=== PATIENT | male | born 1980 | race Caucasian/White ===

== ENCOUNTER 2017-03-19 20:50 | Emergency (ER) | payer OTHER ==
[~2017-03-19 20:50] MED LIST: ATIVAN1 MG PO; FIORICET1 TAB PO; GABAPENTIN300 M2; GABAPENTIN800 M1 PO; HUMALOG100 U/ML SC; LANTUS SOLOS100 U/M1; LANTUS SOLOS100 U/M1 SC; METOPROLOL TART25 M1 PO; PERCOCET1 TA2 PO; PRILOSEC20 MG PO; REM15 PO; XANAX0.5 MG PO; XANAX2 MG PO
[2017-03-20 00:02] VITALS: BP 112/73
== END 2017-03-20 00:02 | disposition home or self-care (01) ==
LOC: ED 20:50
DX: S20.212A Contusion of left front wall of thorax, initial encounter (principal); I10 Essential (primary) hypertension; E11.9 Type 2 diabetes mellitus without complications; E78.00 Pure hypercholesterolemia, unspecified; Z79.4 Long term (current) use of insulin; Z79.891 Long term (current) use of opiate analgesic; Z79.899 Other long term (current) drug therapy; W17.89XA Other fall from one level to another, initial encounter; Z88.1 Allergy status to other antibiotic agents; Y93.39 Activity, other involving climbing, rappelling and jumping off; Y92.488 Other paved roadways as the place of occurrence of the external cause; Y99.8 Other external cause status
CPT/HCPCS: 82962; J1885

== ENCOUNTER 2017-06-23 10:55 | Emergency (ER) | payer OTHER ==
[2017-06-23 12:08] VITALS: BP 121/91
== END 2017-06-23 12:25 | disposition home or self-care (01) ==
LOC: ED 10:55
DX: L02.411 Cutaneous abscess of right axilla (principal); E10.9 Type 1 diabetes mellitus without complications
CPT/HCPCS: J2001

== ENCOUNTER 2017-09-27 19:08 | Inpatient (IN) | payer OTHER ==
[~2017-09-27] VITALS: Ht 185.4 cm; Wt 57.2 kg
[2017-09-27 20:35] LABS: microscopic required? YES; urine erythrocyte TRACE (NEGATIVE)
[2017-09-27 20:38] LABS: BASOPHIL % 0.4 % (0-2); PLATELET COUNT 282 x10^3mcL (130-400)
[2017-09-27 20:49] LABS: ALBUMIN 3.7 g/dL (3.4-5.0); BILIRUBIN TOTAL 1.21 mg/dL (0.20-1.00); CALCIUM 8.5 mg/dL (8.5-10.1); CREATININE SERUM 1.4 mg/dL (0.7-1.3); POTASSIUM SERUM 4.3 mmol/L (3.5-5.1); TOTAL PROTEIN, SERUM 7.3 g/dL (6.4-8.2)
[2017-09-27 20:56] LABS: CHOLESTEROL/HDL RATIO 3.5
[2017-09-27 20:58] LABS: CARBON DIOXIDE 9.3 mmol/L (21-32)
[2017-09-27 21:00] LABS: FREE T4 0.79 ng/dL (0.76-1.46)
[2017-09-27 21:01] LABS: FREE THYROXINE INDEX 1.6 ug/dL (1.4-4.5); T4(THYROXINE) 4.5 ug/dL (4.7-13.3)
[2017-09-27 21:02] LABS: T3 TOTAL 0.35 ng/mL
[2017-09-27 21:34] LABS: AMPHETAMINE QUAL UR NONE DETECTED (NEG <=1000)
[2017-09-27 23:36] VITALS: BP 123/89
[2017-09-28 00:25] LABS: CHLORIDE SERUM 105 mmol/L (98-107); CREATININE SERUM 1.2 mg/dL (0.7-1.3); GFR1 > 60 mL/min; GLUCOSE SERUM 289 mg/dL (74-106); MAGNESIUM 2.2 mg/dL (1.8-2.4); POTASSIUM SERUM 3.6 mmol/L (3.5-5.1); SODIUM SERUM 140 mmol/L (136-145)
[2017-09-28 00:30] LABS: CARBON DIOXIDE 9.8 mmol/L (21-32)
[2017-09-28 04:00] VITALS: BP 118/82
[2017-09-28 05:37] LABS: BASOPHIL % 0.5 % (0-2); PLATELET COUNT 270 x10^3mcL (130-400); RED CELL DISTRIBUTION WIDTH 12.8 % (11.5-14.5)
[2017-09-28 05:43] LABS: CALCIUM 7.7 mg/dL (8.5-10.1); CARBON DIOXIDE 14.7 mmol/L (21-32); CHLORIDE SERUM 109 mmol/L (98-107); CREATININE SERUM 1.1 mg/dL (0.7-1.3); GFR1 > 60 mL/min; GLUCOSE SERUM 148 mg/dL (74-106); PHOSPHOROUS 2.9 mg/dL (2.5-4.9); POTASSIUM SERUM 3.7 mmol/L (3.5-5.1); SODIUM SERUM 140 mmol/L (136-145)
[2017-09-28 08:14] VITALS: Ht 185.4 cm; Wt 57.2 kg
[2017-09-28 08:23] VITALS: BP 96/65
[2017-09-28 09:00] LABS: CALCIUM 7.5 mg/dL (8.5-10.1); CARBON DIOXIDE 22.2 mmol/L (21-32); CHLORIDE SERUM 104 mmol/L (98-107); GFR1 > 60 mL/min; GLUCOSE SERUM 308 mg/dL (74-106); MAGNESIUM 1.7 mg/dL (1.8-2.4); PHOSPHOROUS 1.7 mg/dL (2.5-4.9); POTASSIUM SERUM 3.4 mmol/L (3.5-5.1); SODIUM SERUM 134 mmol/L (136-145)
[2017-09-28 11:41] VITALS: BP 81/59
[2017-09-28 13:27] LABS: CALCIUM 7.8 mg/dL (8.5-10.1); CARBON DIOXIDE 23.5 mmol/L (21-32); CHLORIDE SERUM 105 mmol/L (98-107); CREATININE SERUM 0.8 mg/dL (0.7-1.3); GFR1 > 60 mL/min; GLUCOSE SERUM 220 mg/dL (74-106); MAGNESIUM 1.7 mg/dL (1.8-2.4); PHOSPHOROUS 1.9 mg/dL (2.5-4.9); SODIUM SERUM 138 mmol/L (136-145)
[2017-09-28 13:29] LABS: POTASSIUM SERUM 2.9 mmol/L (3.5-5.1)
[2017-09-28 15:57] VITALS: BP 88/45
[2017-09-28 17:48] VITALS: BP 111/83
[2017-09-28 20:13] LABS: CALCIUM 7.9 mg/dL (8.5-10.1); CARBON DIOXIDE 23.1 mmol/L (21-32); CHLORIDE SERUM 103 mmol/L (98-107); CREATININE SERUM 1.2 mg/dL (0.7-1.3); GFR1 > 60 mL/min; GLUCOSE SERUM 317 mg/dL (74-106); SODIUM SERUM 136 mmol/L (136-145)
[2017-09-28 21:02] VITALS: BP 104/63
[2017-09-29 05:51] VITALS: BP 102/64
[2017-09-29 06:17] LABS: BASOPHIL % 0.4 % (0-2); PLATELET COUNT 197 x10^3mcL (130-400); RED CELL DISTRIBUTION WIDTH 12.5 % (11.5-14.5)
[2017-09-29 07:00] LABS: CALCIUM 8.3 mg/dL (8.5-10.1); CARBON DIOXIDE 25.3 mmol/L (21-32); CHLORIDE SERUM 102 mmol/L (98-107); CREATININE SERUM 0.9 mg/dL (0.7-1.3); GFR1 > 60 mL/min; MAGNESIUM 1.9 mg/dL (1.8-2.4); POTASSIUM SERUM 4.4 mmol/L (3.5-5.1); SODIUM SERUM 135 mmol/L (136-145)
[2017-09-29 07:03] LABS: GLUCOSE SERUM 519 mg/dL (74-106)
[2017-09-29 08:12] VITALS: BP 117/75
[2017-09-29 16:44] VITALS: BP 112/69; BP 117/75
[2017-09-29] MEDS ORDERED: NORCO1 TA2 PO (17:45)
== END 2017-09-29 18:02 | disposition home or self-care (01) | DRG 420 ==
LOC: ED 19:08 → IC 22:19 → DU 09-28 17:30 → MU 09-29 00:41
PROVIDERS: Specialist; ADMIT Family Medicine
PROC: 02HV33Z Insertion of Infusion Device into Superior Vena Cava, Percutaneous Approach (ICD-10-PCS; principal; 2017-09-28)
PROC: B548ZZA Ultrasonography of Superior Vena Cava, Guidance (ICD-10-PCS; 2017-09-28)
DX: E10.10 Type 1 diabetes mellitus with ketoacidosis without coma (principal); N17.0 Acute kidney failure with tubular necrosis; E10.649 Type 1 diabetes mellitus with hypoglycemia without coma; E86.0 Dehydration; Z68.1 Body mass index [BMI] 19.9 or less, adult; E10.42 Type 1 diabetes mellitus with diabetic polyneuropathy; R63.0 Anorexia; E78.00 Pure hypercholesterolemia, unspecified; F41.9 Anxiety disorder, unspecified; F32.9 Major depressive disorder, single episode, unspecified; Z79.4 Long term (current) use of insulin; F17.210 Nicotine dependence, cigarettes, uncomplicated; Z91.14 Patient's other noncompliance with medication regimen; Z88.1 Allergy status to other antibiotic agents
CPT/HCPCS: 36556; 36600; 82962; 83880; 84439; G0480; J1170; J1200; J1642; J1815; J1885; J2060; J2405; J3475; J3480; J3490; J7030; Q0092

== ENCOUNTER 2017-10-28 23:56 | Inpatient (IN) | payer OTHER ==
[~2017-10-28] VITALS: Ht 185.4 cm; Wt 60.9 kg
[~2017-10-28 23:56] MED LIST changes: +NORCO1 TA2 PO
[2017-10-29 00:05] VITALS: Ht 185.4 cm; Wt 60.9 kg
[2017-10-29 02:59] LABS: microscopic required? NO
[2017-10-29 03:02] LABS: BASOPHIL % 0.5 % (0-2); PLATELET COUNT 372 x10^3mcL (130-400); RED CELL DISTRIBUTION WIDTH 13.1 % (11.5-14.5)
[2017-10-29 03:13] LABS: CALCIUM 8.4 mg/dL (8.5-10.1); CARBON DIOXIDE 22.5 mmol/L (21-32); CHLORIDE SERUM 99 mmol/L (98-107); CREATININE SERUM 0.6 mg/dL (0.7-1.3); GFR1 > 60 mL/min; GLUCOSE SERUM 272 mg/dL (74-106); POTASSIUM SERUM 4.1 mmol/L (3.5-5.1); SODIUM SERUM 130 mmol/L (136-145)
[2017-10-29 03:27] LABS: ALKALINE PHOSPHATASE 122 U/L (46-116); ALT/SGPT 47 U/L (16-63); AST/SGOT 42 U/L (15-37); BILIRUBIN TOTAL 0.37 mg/dL (0.20-1.00); FREE T4 0.84 ng/dL (0.76-1.46); LIPASE 81 IU/L (73-393)
[2017-10-29 03:31] LABS: ALBUMIN 2.6 g/dL (3.4-5.0); TOTAL PROTEIN, SERUM 6.1 g/dL (6.4-8.2)
[2017-10-29 03:56] LABS: UA SPECIFIC GRAVITY 1.025 (1.005-1.035); urine erythrocyte NEGATIVE (NEGATIVE)
[2017-10-29 04:05] LABS: AMPHETAMINE QUAL UR NONE DETECTED (NEG <=1000)
[2017-10-29 05:58] VITALS: BP 126/92
[2017-10-29 07:14] VITALS: BP 126/92
[2017-10-29 09:28] LABS: CHOLESTEROL/HDL RATIO 2.5; MAGNESIUM 1.7 mg/dL (1.8-2.4); PHOSPHOROUS 3.3 mg/dL (2.5-4.9)
[2017-10-29 09:45] VITALS: BP 126/92
[2017-10-29 09:57] VITALS: BP 117/74
[2017-10-29] MEDS ORDERED: HUMALOG100 U/ML SC (12:04)
== END 2017-10-29 13:55 | disposition home or self-care (01) | DRG 347 ==
LOC: ED 23:56 → DU 10-29 04:08
PROVIDERS: Emergency Medicine; Family Medicine
DX: M54.5 Low back pain (principal); N17.0 Acute kidney failure with tubular necrosis; E43 Unspecified severe protein-calorie malnutrition; E10.42 Type 1 diabetes mellitus with diabetic polyneuropathy; D68.69 Other thrombophilia; E10.65 Type 1 diabetes mellitus with hyperglycemia; E86.0 Dehydration; I10 Essential (primary) hypertension; E78.5 Hyperlipidemia, unspecified; F15.10 Other stimulant abuse, uncomplicated; F41.8 Other specified anxiety disorders; Z79.4 Long term (current) use of insulin; Z68.1 Body mass index [BMI] 19.9 or less, adult; F17.290 Nicotine dependence, other tobacco product, uncomplicated; Z91.19 Patient's noncompliance with other medical treatment and regimen; Z88.8 Allergy status to other drugs, medicaments and biological substances
CPT/HCPCS: 82962; 83880; 84439; G0480; J1815; J7030; Q0092

== ENCOUNTER 2018-01-13 07:52 | Inpatient (IN) | payer OTHER ==
[~2018-01-13] VITALS: Ht 193 cm; Wt 66.5 kg
[2018-01-13 09:03] LABS: BASOPHIL % 0.3 % (0-2); PLATELET COUNT 327 x10^3mcL (130-400); RED CELL DISTRIBUTION WIDTH 13.3 % (11.5-14.5)
[2018-01-13 09:20] LABS: ALBUMIN 4.3 g/dL (3.4-5.0); ALKALINE PHOSPHATASE 144 U/L (46-116); ALT/SGPT 48 U/L (16-63); AST/SGOT 20 U/L (15-37); BILIRUBIN TOTAL 1.8 mg/dL (0.20-1.00); CHLORIDE SERUM 97 mmol/L (98-107); CREATININE SERUM 1.3 mg/dL (0.7-1.3); GFR1 > 60 mL/min; GLUCOSE SERUM 219 mg/dL (74-106); POTASSIUM SERUM 4.2 mmol/L (3.5-5.1); SODIUM SERUM 132 mmol/L (136-145); TOTAL PROTEIN, SERUM 8.2 g/dL (6.4-8.2)
[2018-01-13 09:25] LABS: AMYLASE 210 U/L (25-115); CALCIUM 14.3 mg/dL (8.5-10.1); CHOLESTEROL 332 mg/dL (<200); HDL CHOLESTEROL 97 mg/dL (40-60); LIPASE 1918 IU/L (73-393)
[2018-01-13 10:57] LABS: T3 TOTAL 0.43 ng/mL
[2018-01-13 11:01] LABS: CHOLESTEROL/HDL RATIO 3.5; MAGNESIUM 2.1 mg/dL (1.8-2.4); PHOSPHOROUS 6.5 mg/dL (2.5-4.9)
[2018-01-13 11:21] LABS: FREE T4 0.8 ng/dL (0.76-1.46); FREE THYROXINE INDEX 1.9 ug/dL (1.4-4.5); T4(THYROXINE) 4.8 ug/dL (4.7-13.3)
[2018-01-13 11:45] VITALS: BP 171/72
[2018-01-13 12:29] LABS: ALKALINE PHOSPHATASE 94 U/L (46-116); ALT/SGPT 31 U/L (16-63); AST/SGOT 20 U/L (15-37); BILIRUBIN TOTAL 1.17 mg/dL (0.20-1.00); CALCIUM 9.6 mg/dL (8.5-10.1); CARBON DIOXIDE 15.5 mmol/L (21-32); CHLORIDE SERUM 108 mmol/L (98-107); GFR1 > 60 mL/min; GLUCOSE SERUM 187 mg/dL (74-106); MAGNESIUM 1.5 mg/dL (1.8-2.4); PHOSPHOROUS 4.1 mg/dL (2.5-4.9); POTASSIUM SERUM 3.5 mmol/L (3.5-5.1); SODIUM SERUM 141 mmol/L (136-145)
[2018-01-13 12:30] LABS: ALBUMIN 2.9 g/dL (3.4-5.0); TOTAL PROTEIN, SERUM 5.5 g/dL (6.4-8.2)
[2018-01-13 12:43] VITALS: BP 118/78
[2018-01-13 13:50] VITALS: BP 116/51
[2018-01-13] MEDS ORDERED: TOPROL XL25 MG PO (15:16)
[2018-01-13 15:27] LABS: UA SPECIFIC GRAVITY >=1.030 (1.005-1.035); microscopic required? YES; urine erythrocyte 1+ (NEGATIVE)
[2018-01-13 15:37] LABS: AMPHETAMINE QUAL UR NONE DETECTED (NEG <=1000)
[2018-01-13 16:44] LABS: CARBON DIOXIDE 17.2 mmol/L (21-32); CHLORIDE SERUM 109 mmol/L (98-107); GFR1 > 60 mL/min; GLUCOSE SERUM 182 mg/dL (74-106); MAGNESIUM 1.5 mg/dL (1.8-2.4); PHOSPHOROUS 2.1 mg/dL (2.5-4.9); POTASSIUM SERUM 4.2 mmol/L (3.5-5.1); SODIUM SERUM 139 mmol/L (136-145)
[2018-01-13 19:15] VITALS: BP 126/75
[2018-01-13 19:51] LABS: CALCIUM 8.5 mg/dL (8.5-10.1); CARBON DIOXIDE 21.2 mmol/L (21-32); CHLORIDE SERUM 107 mmol/L (98-107); GFR1 > 60 mL/min; GLUCOSE SERUM 167 mg/dL (74-106); MAGNESIUM 1.8 mg/dL (1.8-2.4); PHOSPHOROUS 1.6 mg/dL (2.5-4.9); POTASSIUM SERUM 3.5 mmol/L (3.5-5.1); SODIUM SERUM 140 mmol/L (136-145)
[2018-01-13 23:02] VITALS: BP 112/59
[2018-01-14 00:34] LABS: CALCIUM 8.2 mg/dL (8.5-10.1); CARBON DIOXIDE 21.5 mmol/L (21-32); CHLORIDE SERUM 109 mmol/L (98-107); CREATININE SERUM 0.9 mg/dL (0.7-1.3); GFR1 > 60 mL/min; GLUCOSE SERUM 181 mg/dL (74-106); MAGNESIUM 1.7 mg/dL (1.8-2.4); PHOSPHOROUS 1.2 mg/dL (2.5-4.9); POTASSIUM SERUM 3.1 mmol/L (3.5-5.1); SODIUM SERUM 137 mmol/L (136-145)
[2018-01-14 03:16] VITALS: BP 110/68
[2018-01-14 04:52] LABS: BASOPHIL % 0.5 % (0-2); PLATELET COUNT 237 x10^3mcL (130-400); RED CELL DISTRIBUTION WIDTH 13.4 % (11.5-14.5)
[2018-01-14 05:03] LABS: CALCIUM 8.2 mg/dL (8.5-10.1); CARBON DIOXIDE 21.9 mmol/L (21-32); CHLORIDE SERUM 109 mmol/L (98-107); CREATININE SERUM 0.8 mg/dL (0.7-1.3); GFR1 > 60 mL/min; GLUCOSE SERUM 102 mg/dL (74-106); MAGNESIUM 1.7 mg/dL (1.8-2.4); PHOSPHOROUS 1.5 mg/dL (2.5-4.9); SODIUM SERUM 138 mmol/L (136-145)
[2018-01-14 05:05] LABS: POTASSIUM SERUM 2.9 mmol/L (3.5-5.1)
[2018-01-14 07:48] LABS: IRON 143 ug/dL (65-170); TOTAL IRON BINDING CAPACITY 245 ug/dL (250-450)
[2018-01-14 07:50] VITALS: BP 110/74
[2018-01-14 08:05] LABS: RED BLOOD CELLS 4.04 M/mm3 (4.52-5.90)
[2018-01-14 10:21] LABS: CARBON DIOXIDE 19.5 mmol/L (21-32); CHLORIDE SERUM 105 mmol/L (98-107); CREATININE SERUM 0.9 mg/dL (0.7-1.3); GFR1 > 60 mL/min; GLUCOSE SERUM 427 mg/dL (74-106); POTASSIUM SERUM 3.8 mmol/L (3.5-5.1); SODIUM SERUM 136 mmol/L (136-145)
[2018-01-14 11:12] VITALS: BP 104/61
[2018-01-14 14:00] VITALS: BP 109/68
[2018-01-14 17:10] VITALS: BP 101/60
[2018-01-14 20:38] VITALS: BP 98/58
[2018-01-15 06:39] VITALS: BP 98/52
[2018-01-15 07:38] LABS: BASOPHIL % 0.5 % (0-2); PLATELET COUNT 215 x10^3mcL (130-400); RED CELL DISTRIBUTION WIDTH 13.6 % (11.5-14.5)
[2018-01-15 07:50] LABS: CALCIUM 7.7 mg/dL (8.5-10.1); CARBON DIOXIDE 24.2 mmol/L (21-32); CHLORIDE SERUM 109 mmol/L (98-107); CREATININE SERUM 0.6 mg/dL (0.7-1.3); GFR1 > 60 mL/min; GLUCOSE SERUM 246 mg/dL (74-106); MAGNESIUM 1.7 mg/dL (1.8-2.4); PHOSPHOROUS 2.8 mg/dL (2.5-4.9); POTASSIUM SERUM 3.3 mmol/L (3.5-5.1); SODIUM SERUM 137 mmol/L (136-145)
[2018-01-15 08:36] VITALS: BP 105/62
[2018-01-15 08:49] VITALS: Ht 193 cm; Wt 66.5 kg
[2018-01-15 13:22] VITALS: BP 105/62
[2018-01-15 13:31] VITALS: BP 108/69
[2018-01-15 16:42] VITALS: BP 105/64
[2018-01-15 21:02] VITALS: BP 107/70
== END 2018-01-15 23:47 | disposition left against medical advice (07) | DRG 720 ==
LOC: ED 07:52 → IC 09:56 → DU 01-14 13:58
PROVIDERS: Emergency Medicine; Family Medicine
DX: A41.9 Sepsis, unspecified organism (principal); J96.01 Acute respiratory failure with hypoxia; N17.0 Acute kidney failure with tubular necrosis; K85.90 Acute pancreatitis without necrosis or infection, unspecified; E44.0 Moderate protein-calorie malnutrition; E10.10 Type 1 diabetes mellitus with ketoacidosis without coma; R65.20 Severe sepsis without septic shock; I10 Essential (primary) hypertension; F41.9 Anxiety disorder, unspecified; F32.9 Major depressive disorder, single episode, unspecified; E83.52 Hypercalcemia; E78.00 Pure hypercholesterolemia, unspecified; F17.210 Nicotine dependence, cigarettes, uncomplicated; E87.6 Hypokalemia; E83.39 Other disorders of phosphorus metabolism; M54.5 Low back pain; Z53.21 Procedure and treatment not carried out due to patient leaving prior to being seen by health care provider; E78.5 Hyperlipidemia, unspecified; E10.42 Type 1 diabetes mellitus with diabetic polyneuropathy; Z91.19 Patient's noncompliance with other medical treatment and regimen; Z88.0 Allergy status to penicillin; Z79.4 Long term (current) use of insulin; Z79.899 Other long term (current) drug therapy; Z83.3 Family history of diabetes mellitus; Z56.0 Unemployment, unspecified
CPT/HCPCS: 36600; 82962; 83880; 84439; 94150; G0480; J1630; J1815; J1956; J2060; J3475; J3490; J7030; J7042; J7620; Q0092

== ENCOUNTER 2018-03-18 05:55 | Emergency (ER) | payer OTHER ==
[~2018-03-18] VITALS: Ht 185.4 cm; Wt 56.7 kg
[~2018-03-18 05:55] MED LIST changes: +TOPROL XL25 MG PO
[2018-03-18 05:58] VITALS: Ht 185.4 cm; Wt 56.7 kg
[2018-03-18 07:36] LABS: BASOPHIL % 0.4 % (0-2); PLATELET COUNT 282 x10^3mcL (130-400); RED CELL DISTRIBUTION WIDTH 13.1 % (11.5-14.5)
[2018-03-18 07:38] LABS: microscopic required? NO
[2018-03-18 07:55] LABS: ALKALINE PHOSPHATASE 110 U/L (46-116); ALT/SGPT 27 U/L (16-63); AMYLASE 31 U/L (25-115); AST/SGOT 18 U/L (15-37); BILIRUBIN TOTAL 0.7 mg/dL (0.20-1.00); CALCIUM 8.1 mg/dL (8.5-10.1); CARBON DIOXIDE 26.9 mmol/L (21-32); CHLORIDE SERUM 100 mmol/L (98-107); CHOLESTEROL 165 mg/dL (<200); CREATININE SERUM 0.7 mg/dL (0.7-1.3); GFR1 > 60 mL/min; HDL CHOLESTEROL 59 mg/dL (40-60); LIPASE 253 IU/L (73-393); SODIUM SERUM 133 mmol/L (136-145)
[2018-03-18 08:17] LABS: urine erythrocyte NEGATIVE (NEGATIVE)
[2018-03-18 08:19] LABS: ALBUMIN 2.5 g/dL (3.4-5.0); POTASSIUM SERUM 2.9 mmol/L (3.5-5.1); TOTAL PROTEIN, SERUM 5.6 g/dL (6.4-8.2)
[2018-03-18 08:20] LABS: GLUCOSE SERUM 531 mg/dL (74-106)
[2018-03-18 14:55] VITALS: BP 101/69
== END 2018-03-18 14:55 | disposition home or self-care (01) ==
LOC: ED 05:55
PROVIDERS: Emergency Medicine
DX: E10.65 Type 1 diabetes mellitus with hyperglycemia (principal); E10.40 Type 1 diabetes mellitus with diabetic neuropathy, unspecified; E46 Unspecified protein-calorie malnutrition; T85.848A Pain due to other internal prosthetic devices, implants and grafts, initial encounter; F17.210 Nicotine dependence, cigarettes, uncomplicated; F32.9 Major depressive disorder, single episode, unspecified; I10 Essential (primary) hypertension; Z88.1 Allergy status to other antibiotic agents; Z71.6 Tobacco abuse counseling
CPT/HCPCS: 82962; 83880; 99406; J1815; J1885; J3480; J7030; Q0092

== ENCOUNTER 2018-03-24 22:10 | Emergency (ER) | payer OTHER ==
[~2018-03-24] VITALS: Ht 185.4 cm; Wt 72.6 kg
[2018-03-24 22:22] VITALS: Ht 185.4 cm; Wt 72.6 kg
[2018-03-25 00:33] LABS: BASOPHIL % 0.4 % (0-2)
[2018-03-25 00:34] LABS: UA SPECIFIC GRAVITY 1.025 (1.005-1.035); microscopic required? YES; urine erythrocyte 1+ (NEGATIVE)
[2018-03-25 00:36] LABS: PLATELET COUNT 480 x10^3mcL (130-400)
[2018-03-25 00:38] LABS: CALCIUM 8.7 mg/dL (8.5-10.1); CARBON DIOXIDE 29.9 mmol/L (21-32); CHLORIDE SERUM 98 mmol/L (98-107); CREATININE SERUM 0.8 mg/dL (0.7-1.3); GFR1 > 60 mL/min; GLUCOSE SERUM 383 mg/dL (74-106); POTASSIUM SERUM 4.3 mmol/L (3.5-5.1); SODIUM SERUM 133 mmol/L (136-145)
[2018-03-25 00:43] LABS: ALBUMIN 2.9 g/dL (3.4-5.0); ALKALINE PHOSPHATASE 113 U/L (46-116); ALT/SGPT 39 U/L (16-63); AST/SGOT 26 U/L (15-37); BILIRUBIN TOTAL 0.5 mg/dL (0.20-1.00); LIPASE 347 IU/L (73-393); TOTAL PROTEIN, SERUM 6.5 g/dL (6.4-8.2)
[2018-03-25 03:15] VITALS: BP 102/66
== END 2018-03-25 03:15 | disposition home or self-care (01) ==
LOC: ED 22:10
PROVIDERS: Emergency Medicine
DX: K59.00 Constipation, unspecified (principal); E10.65 Type 1 diabetes mellitus with hyperglycemia; E10.40 Type 1 diabetes mellitus with diabetic neuropathy, unspecified; Z88.1 Allergy status to other antibiotic agents
CPT/HCPCS: 82962; J7030

== ENCOUNTER 2018-04-24 11:29 | Inpatient (IN) | payer OTHER ==
[~2018-04-24] VITALS: Ht 177.8 cm; Wt 69.2 kg
[2018-04-24 14:42] LABS: PLATELET COUNT 365 x10^3mcL (130-400)
[2018-04-24 14:45] LABS: RED CELL DISTRIBUTION WIDTH 14.6 % (11.5-14.5)
[2018-04-24 15:02] LABS: ALBUMIN 4.1 g/dL (3.4-5.0); ALKALINE PHOSPHATASE 178 U/L (46-116); ALT/SGPT 56 U/L (16-63); AST/SGOT 50 U/L (15-37); BILIRUBIN TOTAL 0.73 mg/dL (0.20-1.00); CALCIUM 9.5 mg/dL (8.5-10.1); CHLORIDE SERUM 99 mmol/L (98-107); CREATININE SERUM 1.4 mg/dL (0.7-1.3); GFR1 60 mL/min; HDL CHOLESTEROL 52 mg/dL (40-60); LIPASE 178 IU/L (73-393); POTASSIUM SERUM 5.2 mmol/L (3.5-5.1); SODIUM SERUM 139 mmol/L (136-145)
[2018-04-24 15:06] LABS: AMYLASE 20 U/L (25-115); CHOLESTEROL 381 mg/dL (<200); TOTAL PROTEIN, SERUM 8.3 g/dL (6.4-8.2)
[2018-04-24 15:07] LABS: CARBON DIOXIDE 5.7 mmol/L (21-32)
[2018-04-24 15:08] LABS: GLUCOSE SERUM 716 mg/dL (74-106)
[2018-04-24 15:15] LABS: BAND NEUTROPHIL 8 % (0-10); METAMYELOCTE 2 % (0-2); MONOCYTE 5 % (0-7); MYELOCYTE 3 % (0-2); SEGMENTED NEUTROPHILS 56 % (37-75); rbc morphology (normal/abnorm) NORMAL (NORMAL)
[2018-04-24 15:16] LABS: PLATELET MORPHOLOGY PLATELETS NORMAL
[2018-04-24 16:18] LABS: UA SPECIFIC GRAVITY 1.025 (1.005-1.035); microscopic required? YES; urine erythrocyte 2+ (NEGATIVE)
[2018-04-24 16:27] LABS: AMPHETAMINE QUAL UR NONE DETECTED (See below)
[2018-04-24 18:11] VITALS: BP 117/66
[2018-04-24] MEDS ORDERED: CETIRIZINE HYDR10 MG PO (18:32)
[2018-04-24 19:14] VITALS: BP 128/75
[2018-04-24 19:42] LABS: HDL CHOLESTEROL 51 mg/dL (40-60)
[2018-04-24 19:47] LABS: CHOLESTEROL 383 mg/dL (<200); CHOLESTEROL/HDL RATIO 7.5; TRIGLYCERIDES 838 mg/dL (<150)
[2018-04-24 19:50] LABS: FREE T4 0.95 ng/dL (0.76-1.46); FREE THYROXINE INDEX 1.5 ug/dL (1.4-4.5); T4(THYROXINE) 4.4 ug/dL (4.7-13.3)
[2018-04-24 20:39] LABS: CALCIUM 7.2 mg/dL (8.5-10.1); CHLORIDE SERUM 120 mmol/L (98-107); GFR1 > 60 mL/min; GLUCOSE SERUM 161 mg/dL (74-106); MAGNESIUM 1.9 mg/dL (1.8-2.4); PHOSPHOROUS 1.7 mg/dL (2.5-4.9); POTASSIUM SERUM 3.8 mmol/L (3.5-5.1); SODIUM SERUM 152 mmol/L (136-145)
[2018-04-24 20:41] LABS: CARBON DIOXIDE 7.1 mmol/L (21-32)
[2018-04-24 23:07] LABS: T3 TOTAL 0.46 ng/mL
[2018-04-24 23:09] VITALS: BP 120/67
[2018-04-25 00:19] LABS: CALCIUM 7.5 mg/dL (8.5-10.1); CARBON DIOXIDE 10.1 mmol/L (21-32); CHLORIDE SERUM 122 mmol/L (98-107); CREATININE SERUM 0.9 mg/dL (0.7-1.3); GFR1 > 60 mL/min; GLUCOSE SERUM 117 mg/dL (74-106); MAGNESIUM 1.8 mg/dL (1.8-2.4); POTASSIUM SERUM 3.6 mmol/L (3.5-5.1); SODIUM SERUM 152 mmol/L (136-145)
[2018-04-25 03:04] VITALS: BP 109/54
[2018-04-25 04:17] LABS: CARBON DIOXIDE 14.9 mmol/L (21-32); CHLORIDE SERUM 118 mmol/L (98-107); CREATININE SERUM 0.9 mg/dL (0.7-1.3); GFR1 > 60 mL/min; GLUCOSE SERUM 140 mg/dL (74-106); MAGNESIUM 1.7 mg/dL (1.8-2.4); PHOSPHOROUS 1.4 mg/dL (2.5-4.9); SODIUM SERUM 149 mmol/L (136-145)
[2018-04-25 04:19] LABS: POTASSIUM SERUM 2.9 mmol/L (3.5-5.1)
[2018-04-25 04:46] LABS: BASOPHIL % 1.9 % (0-2); PLATELET COUNT 310 x10^3mcL (130-400); RED CELL DISTRIBUTION WIDTH 13.3 % (11.5-14.5)
[2018-04-25 07:32] VITALS: BP 109/60
[2018-04-25 09:28] LABS: CALCIUM 7.7 mg/dL (8.5-10.1); CARBON DIOXIDE 15.6 mmol/L (21-32); CHLORIDE SERUM 118 mmol/L (98-107); CREATININE SERUM 0.9 mg/dL (0.7-1.3); GLUCOSE SERUM 194 mg/dL (74-106); MAGNESIUM 2.4 mg/dL (1.8-2.4); PHOSPHOROUS 2.4 mg/dL (2.5-4.9); POTASSIUM SERUM 3.3 mmol/L (3.5-5.1); SODIUM SERUM 146 mmol/L (136-145)
[2018-04-25 11:29] VITALS: BP 106/58
[2018-04-25 12:49] LABS: CALCIUM 7.5 mg/dL (8.5-10.1); CARBON DIOXIDE 17.2 mmol/L (21-32); CHLORIDE SERUM 116 mmol/L (98-107); GLUCOSE SERUM 197 mg/dL (74-106); PHOSPHOROUS 2.6 mg/dL (2.5-4.9); SODIUM SERUM 144 mmol/L (136-145)
[2018-04-25 12:57] LABS: POTASSIUM SERUM 2.8 mmol/L (3.5-5.1)
[2018-04-25 15:48] VITALS: BP 121/94
[2018-04-25 16:21] LABS: CREATININE SERUM 0.8 mg/dL (0.7-1.3); GFR1 > 60 mL/min
[2018-04-25 16:43] LABS: CHLORIDE SERUM 115 mmol/L (98-107); GLUCOSE SERUM 121 mg/dL (74-106); MAGNESIUM 1.9 mg/dL (1.8-2.4); PHOSPHOROUS 1.7 mg/dL (2.5-4.9); SODIUM SERUM 144 mmol/L (136-145)
[2018-04-25 17:15] LABS: POTASSIUM SERUM 2.5 mmol/L (3.5-5.1)
[2018-04-25 17:43] LABS: CREATININE SERUM 0.7 mg/dL (0.7-1.3); GFR1 > 60 mL/min
[2018-04-25 19:30] VITALS: BP 115/67
[2018-04-25 21:10] LABS: CARBON DIOXIDE 16.7 mmol/L (21-32); CHLORIDE SERUM 111 mmol/L (98-107); GLUCOSE SERUM 302 mg/dL (74-106); POTASSIUM SERUM 3.2 mmol/L (3.5-5.1); SODIUM SERUM 141 mmol/L (136-145)
[2018-04-25 21:20] LABS: CREATININE SERUM 0.8 mg/dL (0.7-1.3); GFR1 > 60 mL/min
[2018-04-25 23:52] VITALS: BP 122/77
[2018-04-26 03:26] VITALS: BP 100/59
[2018-04-26 05:38] LABS: CALCIUM 7.9 mg/dL (8.5-10.1); CARBON DIOXIDE 21.7 mmol/L (21-32); CHLORIDE SERUM 116 mmol/L (98-107); GLUCOSE SERUM 75 mg/dL (74-106); MAGNESIUM 1.9 mg/dL (1.8-2.4); PHOSPHOROUS 2.1 mg/dL (2.5-4.9); SODIUM SERUM 146 mmol/L (136-145)
[2018-04-26 05:39] LABS: BASOPHIL % 0.2 % (0-2); PLATELET COUNT 232 x10^3mcL (130-400); RED CELL DISTRIBUTION WIDTH 14.2 % (11.5-14.5)
[2018-04-26 05:41] LABS: POTASSIUM SERUM 2.7 mmol/L (3.5-5.1)
[2018-04-26 05:42] LABS: CREATININE SERUM 0.6 mg/dL (0.7-1.3); GFR1 > 60 mL/min
[2018-04-26 07:31] VITALS: Ht 177.8 cm; Wt 69.2 kg
[2018-04-26 07:45] VITALS: BP 117/67
[2018-04-26 11:33] VITALS: BP 11/69
[2018-04-26 15:05] VITALS: BP 107/72
[2018-04-26 17:51] VITALS: BP 115/78
[2018-04-26 21:00] VITALS: BP 109/74
[2018-04-27 04:45] VITALS: BP 121/82
[2018-04-27 06:09] LABS: BASOPHIL % 1.4 % (0-2); PLATELET COUNT 201 x10^3mcL (130-400)
[2018-04-27 06:21] LABS: CALCIUM 8.4 mg/dL (8.5-10.1); CARBON DIOXIDE 26.4 mmol/L (21-32); CHLORIDE SERUM 113 mmol/L (98-107); CREATININE SERUM 0.6 mg/dL (0.7-1.3); GFR1 > 60 mL/min; GLUCOSE SERUM 136 mg/dL (74-106); MAGNESIUM 1.7 mg/dL (1.8-2.4); PHOSPHOROUS 2.6 mg/dL (2.5-4.9); SODIUM SERUM 145 mmol/L (136-145)
[2018-04-27 06:32] LABS: RED CELL DISTRIBUTION WIDTH 14.6 % (11.5-14.5)
[2018-04-27] MEDS ORDERED: NORCO1 TA2 PO (09:22)
[2018-04-27 13:19] VITALS: BP 128/88
== END 2018-04-27 15:00 | disposition left against medical advice (07) | DRG 420 ==
LOC: ED 11:29 → IC 15:33 → DU 17:15
PROVIDERS: Emergency Medicine; Family Medicine; Family Medicine Sports Medicine
DX: E10.10 Type 1 diabetes mellitus with ketoacidosis without coma (principal); K72.00 Acute and subacute hepatic failure without coma; N17.0 Acute kidney failure with tubular necrosis; R64 Cachexia; F15.20 Other stimulant dependence, uncomplicated; E87.5 Hyperkalemia; F33.1 Major depressive disorder, recurrent, moderate; E10.42 Type 1 diabetes mellitus with diabetic polyneuropathy; F17.210 Nicotine dependence, cigarettes, uncomplicated; F11.10 Opioid abuse, uncomplicated; I10 Essential (primary) hypertension; E78.5 Hyperlipidemia, unspecified; Z53.21 Procedure and treatment not carried out due to patient leaving prior to being seen by health care provider; K21.9 Gastro-esophageal reflux disease without esophagitis; E87.6 Hypokalemia; F41.1 Generalized anxiety disorder; Z79.4 Long term (current) use of insulin; Z88.1 Allergy status to other antibiotic agents; Z91.14 Patient's other noncompliance with medication regimen; Z83.3 Family history of diabetes mellitus; Z68.21 Body mass index [BMI] 21.0-21.9, adult
CPT/HCPCS: 36600; 82962; 83880; 84439; G0480; J1630; J1815; J1885; J1956; J2060; J2270; J3475; J3480; J3490; J7030; Q0092

== ENCOUNTER 2018-05-22 02:38 | Emergency (ER) | payer OTHER ==
[~2018-05-22] VITALS: Ht 185.4 cm; Wt 65.8 kg
[~2018-05-22 02:38] MED LIST changes: +CETIRIZINE HYDR10 MG PO
[2018-05-22 02:59] VITALS: Ht 185.4 cm; Wt 65.8 kg
[2018-05-22 06:36] LABS: BASOPHIL % 0.4 % (0-2); PLATELET COUNT 253 x10^3mcL (130-400); RED CELL DISTRIBUTION WIDTH 14.3 % (11.5-14.5)
[2018-05-22 06:40] LABS: CALCIUM 8.5 mg/dL (8.5-10.1); CARBON DIOXIDE 26.4 mmol/L (21-32); CHLORIDE SERUM 103 mmol/L (98-107); CREATININE SERUM 0.7 mg/dL (0.7-1.3); GFR1 > 60 mL/min; GLUCOSE SERUM 271 mg/dL (74-106); POTASSIUM SERUM 3.3 mmol/L (3.5-5.1); SODIUM SERUM 136 mmol/L (136-145)
[2018-05-22 06:44] LABS: ALKALINE PHOSPHATASE 82 U/L (46-116); ALT/SGPT 73 U/L (16-63); AST/SGOT 107 U/L (15-37); BILIRUBIN TOTAL 1.25 mg/dL (0.20-1.00)
[2018-05-22 06:58] LABS: ALBUMIN 3.2 g/dL (3.4-5.0)
[2018-05-22 07:58] VITALS: BP 110/65
== END 2018-05-22 07:50 | disposition home or self-care (01) ==
LOC: ED 02:38
PROVIDERS: Emergency Medicine
DX: S86.912A Strain of unspecified muscle(s) and tendon(s) at lower leg level, left leg, initial encounter (principal); S76.912A Strain of unspecified muscles, fascia and tendons at thigh level, left thigh, initial encounter; S66.912A Strain of unspecified muscle, fascia and tendon at wrist and hand level, left hand, initial encounter; S66.911A Strain of unspecified muscle, fascia and tendon at wrist and hand level, right hand, initial encounter; R07.89 Other chest pain; R06.02 Shortness of breath; I10 Essential (primary) hypertension; E10.65 Type 1 diabetes mellitus with hyperglycemia; Z88.0 Allergy status to penicillin; W17.89XA Other fall from one level to another, initial encounter; Y93.89 Activity, other specified; Y92.89 Other specified places as the place of occurrence of the external cause; Y99.8 Other external cause status
CPT/HCPCS: 36415; J1885; J3010

== ENCOUNTER 2018-05-26 20:59 | Emergency (ER) | payer OTHER ==
[~2018-05-26] VITALS: Ht 185.4 cm; Wt 65.8 kg
[2018-05-26 21:23] VITALS: Ht 185.4 cm; Wt 65.8 kg
[2018-05-27 02:29] VITALS: BP 128/93
== END 2018-05-27 03:08 | disposition home or self-care (01) ==
LOC: ED 20:59
DX: S32.301A Unspecified fracture of right ilium, initial encounter for closed fracture (principal); S93.601A Unspecified sprain of right foot, initial encounter; S20.219A Contusion of unspecified front wall of thorax, initial encounter; E10.65 Type 1 diabetes mellitus with hyperglycemia; I10 Essential (primary) hypertension; Z88.0 Allergy status to penicillin; W17.89XA Other fall from one level to another, initial encounter; Y93.89 Activity, other specified; Y92.89 Other specified places as the place of occurrence of the external cause; Y99.8 Other external cause status
CPT/HCPCS: J1815; J3010

== ENCOUNTER 2018-06-12 07:52 | Inpatient (IN) | payer OTHER ==
[2018-06-12] VITALS (12 sets, daily range): BP systolic 94–183; BP diastolic 55–115; Ht 182.9 cm; Wt 63.0 kg
[~2018-06-12] VITALS: Ht 182.9 cm; Wt 63.0 kg
[~2018-06-12 07:52] MED LIST changes: +PRILOSEC OTC20 M1 PO
[2018-06-12 09:01] LABS: ALBUMIN 3.9 g/dL (3.4-5.0); BILIRUBIN TOTAL 0.5 mg/dL (0.20-1.00); CALCIUM 9.8 mg/dL (8.5-10.1); CREATININE SERUM 1.8 mg/dL (0.7-1.3); MAGNESIUM 3.3 mg/dL (1.8-2.4); TOTAL PROTEIN, SERUM 8.2 g/dL (6.4-8.2)
[2018-06-12 09:48] LABS: PLATELET COUNT 521 x10^3mcL (130-400)
[2018-06-12 09:52] LABS: POTASSIUM SERUM 5.9 mmol/L (3.5-5.1)
[2018-06-12 09:53] LABS: PHOSPHOROUS 11.7 mg/dL (2.5-4.9)
[2018-06-12 09:55] LABS: BAND NEUTROPHIL 5 % (0-10); BASOPHIL 0 % (0-2); MONOCYTE 4 % (0-7); SEGMENTED NEUTROPHILS 82 % (37-75)
[2018-06-12 09:56] LABS: PLATELET MORPHOLOGY PLATELETS INCREASED; rbc morphology (normal/abnorm) NORMAL (NORMAL)
[2018-06-12 10:50] LABS: AMPHETAMINE QUAL UR POSITIVE (See below)
[2018-06-12 11:42] LABS: AMYLASE 37 U/L (25-115); HDL CHOLESTEROL 58 mg/dL (40-60); LIPASE 510 IU/L (73-393)
[2018-06-12 11:44] LABS: CHOLESTEROL 297 mg/dL (<200); CHOLESTEROL/HDL RATIO 5.1; TRIGLYCERIDES 665 mg/dL (<150)
[2018-06-12 12:04] LABS: T3 TOTAL 0.52 ng/mL
[2018-06-12 12:11] LABS: FREE T4 0.87 ng/dL (0.76-1.46); FREE THYROXINE INDEX 2.5 ug/dL (1.4-4.5)
[2018-06-12 12:14] LABS: CALCIUM 8.2 mg/dL (8.5-10.1); CREATININE SERUM 1.4 mg/dL (0.7-1.3); MAGNESIUM 2.8 mg/dL (1.8-2.4); PHOSPHOROUS 3.6 mg/dL (2.5-4.9); POTASSIUM SERUM 3.5 mmol/L (3.5-5.1)
[2018-06-12 13:41] LABS: UA SPECIFIC GRAVITY 1.025 (1.005-1.035); microscopic required? YES; urine erythrocyte 1+ (NEGATIVE)
[2018-06-12 16:57] LABS: CALCIUM 8.3 mg/dL (8.5-10.1); CARBON DIOXIDE 18.6 mmol/L (21-32); CHLORIDE SERUM 118 mmol/L (98-107); CREATININE SERUM 1.3 mg/dL (0.7-1.3); GFR1 > 60 mL/min; GLUCOSE SERUM 190 mg/dL (74-106); MAGNESIUM 2.4 mg/dL (1.8-2.4); PHOSPHOROUS 1.3 mg/dL (2.5-4.9); POTASSIUM SERUM 3.3 mmol/L (3.5-5.1); SODIUM SERUM 153 mmol/L (136-145)
[2018-06-12 21:14] LABS: CALCIUM 7.6 mg/dL (8.5-10.1); CARBON DIOXIDE 20.5 mmol/L (21-32); CHLORIDE SERUM 123 mmol/L (98-107); CREATININE SERUM 1.3 mg/dL (0.7-1.3); GFR1 > 60 mL/min; GLUCOSE SERUM 185 mg/dL (74-106); MAGNESIUM 2.1 mg/dL (1.8-2.4); PHOSPHOROUS 3.6 mg/dL (2.5-4.9); POTASSIUM SERUM 4.8 mmol/L (3.5-5.1); SODIUM SERUM 154 mmol/L (136-145)
[2018-06-13] VITALS (14 sets, daily range): BP systolic 96–133; BP diastolic 57–76
[2018-06-13 01:08] LABS: CALCIUM 7.4 mg/dL (8.5-10.1); CHLORIDE SERUM 122 mmol/L (98-107); CREATININE SERUM 1.3 mg/dL (0.7-1.3); GFR1 > 60 mL/min; GLUCOSE SERUM 174 mg/dL (74-106); MAGNESIUM 1.9 mg/dL (1.8-2.4); PHOSPHOROUS 3.5 mg/dL (2.5-4.9); POTASSIUM SERUM 3.6 mmol/L (3.5-5.1); SODIUM SERUM 154 mmol/L (136-145)
[2018-06-13 05:37] LABS: PLATELET COUNT 358 x10^3mcL (130-400)
[2018-06-13 05:50] LABS: RED CELL DISTRIBUTION WIDTH 15.2 % (11.5-14.5)
[2018-06-13 05:52] LABS: CALCIUM 7.4 mg/dL (8.5-10.1); CARBON DIOXIDE 22.8 mmol/L (21-32); CHLORIDE SERUM 121 mmol/L (98-107); CREATININE SERUM 1.2 mg/dL (0.7-1.3); GFR1 > 60 mL/min; GLUCOSE SERUM 179 mg/dL (74-106); MAGNESIUM 1.9 mg/dL (1.8-2.4); PHOSPHOROUS 2.5 mg/dL (2.5-4.9); SODIUM SERUM 152 mmol/L (136-145)
[2018-06-13 05:56] LABS: POTASSIUM SERUM 2.9 mmol/L (3.5-5.1)
[2018-06-13 06:06] LABS: BAND NEUTROPHIL 6 % (0-10); SEGMENTED NEUTROPHILS 74 % (37-75)
[2018-06-13 06:07] LABS: MONOCYTE 9 % (0-7); PLATELET MORPHOLOGY PLATELETS NORMAL; rbc morphology (normal/abnorm) NORMAL (NORMAL)
[2018-06-13 08:51] LABS: CALCIUM 7.6 mg/dL (8.5-10.1); CARBON DIOXIDE 21.4 mmol/L (21-32); CHLORIDE SERUM 120 mmol/L (98-107); CREATININE SERUM 1.1 mg/dL (0.7-1.3); GFR1 > 60 mL/min; GLUCOSE SERUM 168 mg/dL (74-106); MAGNESIUM 1.8 mg/dL (1.8-2.4); SODIUM SERUM 150 mmol/L (136-145)
[2018-06-13 08:53] LABS: POTASSIUM SERUM 2.9 mmol/L (3.5-5.1)
[2018-06-14] VITALS (11 sets, daily range): BP systolic 102–135; BP diastolic 63–86
[2018-06-14 05:55] LABS: BASOPHIL % 0.7 % (0-2); PLATELET COUNT 234 x10^3mcL (130-400); RED CELL DISTRIBUTION WIDTH 14.5 % (11.5-14.5)
[2018-06-14 06:03] LABS: CALCIUM 8.1 mg/dL (8.5-10.1); CARBON DIOXIDE 24.7 mmol/L (21-32); CHLORIDE SERUM 109 mmol/L (98-107); CREATININE SERUM 0.5 mg/dL (0.7-1.3); GFR1 > 60 mL/min; GLUCOSE SERUM 407 mg/dL (74-106); MAGNESIUM 1.8 mg/dL (1.8-2.4); PHOSPHOROUS 1.7 mg/dL (2.5-4.9); POTASSIUM SERUM 3.1 mmol/L (3.5-5.1); SODIUM SERUM 143 mmol/L (136-145)
[2018-06-15 05:23] VITALS: BP 111/78
[2018-06-15 07:07] LABS: CALCIUM 8.2 mg/dL (8.5-10.1); CARBON DIOXIDE 22.9 mmol/L (21-32); CHLORIDE SERUM 109 mmol/L (98-107); CREATININE SERUM 0.5 mg/dL (0.7-1.3); GFR1 > 60 mL/min; GLUCOSE SERUM 311 mg/dL (74-106); MAGNESIUM 1.7 mg/dL (1.8-2.4); PHOSPHOROUS 2.4 mg/dL (2.5-4.9); SODIUM SERUM 144 mmol/L (136-145)
[2018-06-15 07:29] LABS: BASOPHIL % 1.5 % (0-2); PLATELET COUNT 214 x10^3mcL (130-400); RED CELL DISTRIBUTION WIDTH 14.4 % (11.5-14.5)
[2018-06-15 08:50] VITALS: BP 132/84
[2018-06-15 12:02] VITALS: BP 127/85
[2018-06-15 12:46] VITALS: BP 127/85
[2018-06-15] MEDS ORDERED: HUMALOG100 U/ML SC (13:40)
== END 2018-06-15 14:10 | disposition home or self-care (01) | DRG 469 ==
LOC: ED 07:52 → IC 11:05 → DU 06-14 17:21
PROVIDERS: Emergency Medicine; Family Medicine; Internal Medicine
PROC: 5A1945Z Respiratory Ventilation, 24-96 Consecutive Hours (ICD-10-PCS; principal; 2018-06-12)
PROC: 02HV33Z Insertion of Infusion Device into Superior Vena Cava, Percutaneous Approach (ICD-10-PCS; 2018-06-12)
PROC: B548ZZA Ultrasonography of Superior Vena Cava, Guidance (ICD-10-PCS; 2018-06-12)
PROC: 0BH17EZ Insertion of Endotracheal Airway into Trachea, Via Natural or Artificial Opening (ICD-10-PCS; 2018-06-12)
DX: N17.0 Acute kidney failure with tubular necrosis (principal); J96.01 Acute respiratory failure with hypoxia; G92 Toxic encephalopathy; E10.10 Type 1 diabetes mellitus with ketoacidosis without coma; E78.00 Pure hypercholesterolemia, unspecified; F15.10 Other stimulant abuse, uncomplicated; F41.9 Anxiety disorder, unspecified; F32.9 Major depressive disorder, single episode, unspecified; E83.41 Hypermagnesemia; E83.51 Hypocalcemia; E10.40 Type 1 diabetes mellitus with diabetic neuropathy, unspecified; E78.1 Pure hyperglyceridemia; E78.5 Hyperlipidemia, unspecified; Z88.1 Allergy status to other antibiotic agents; Z91.040 Latex allergy status; Z83.3 Family history of diabetes mellitus; Z91.14 Patient's other noncompliance with medication regimen
CPT/HCPCS: 36556; 36600; 82962; 84439; J0330; J1170; J1642; J1644; J1815; J1956; J2060; J2250; J2704; J3010; J3480; J3490; J7030; J7620; Q0092

== ENCOUNTER 2018-07-21 16:34 | Emergency (ER) | payer OTHER ==
[2018-07-21 16:52] VITALS: Ht 185.4 cm
[2018-07-21 18:16] VITALS: BP 122/83
== END 2018-07-21 18:16 | disposition home or self-care (01) ==
LOC: ED 16:34
DX: M25.551 Pain in right hip (principal); M54.6 Pain in thoracic spine; F41.9 Anxiety disorder, unspecified; F32.9 Major depressive disorder, single episode, unspecified; I10 Essential (primary) hypertension; E10.40 Type 1 diabetes mellitus with diabetic neuropathy, unspecified; Z88.1 Allergy status to other antibiotic agents; Z91.040 Latex allergy status

== ENCOUNTER 2019-03-25 20:26 | Inpatient (IN) | payer OTHER ==
[~2019-03-25] VITALS: Ht 185.4 cm; Wt 59.2 kg
[2019-03-25 21:23] LABS: PLATELET COUNT 301 x10^3mcL (130-400); RED CELL DISTRIBUTION WIDTH 14.1 % (11.5-14.5)
[2019-03-25 21:45] LABS: BAND NEUTROPHIL 3 % (0-10); MONOCYTE 1 % (0-7); SEGMENTED NEUTROPHILS 67 % (37-75)
[2019-03-25 21:46] LABS: PLATELET MORPHOLOGY PLATELETS NORMAL; rbc morphology (normal/abnorm) NORMAL (NORMAL)
[2019-03-25 22:17] LABS: UA SPECIFIC GRAVITY >=1.030 (1.005-1.035); microscopic required? YES; urine erythrocyte TRACE (NEGATIVE)
[2019-03-25 22:26] LABS: AMPHETAMINE QUAL UR NONE DETECTED (See below)
[2019-03-25 22:35] LABS: ALKALINE PHOSPHATASE 144 U/L (46-116); ALT/SGPT 23 U/L (16-63); AST/SGOT 15 U/L (15-37); BILIRUBIN TOTAL 1.31 mg/dL (0.20-1.00); CALCIUM 8.9 mg/dL (8.5-10.1); CHLORIDE SERUM 94 mmol/L (98-107); CREATININE SERUM 1.2 mg/dL (0.7-1.3); GFR1 > 60 mL/min; GLUCOSE SERUM 416 mg/dL (74-106); LIPASE 34 IU/L (73-393); POTASSIUM SERUM 4.9 mmol/L (3.5-5.1); SODIUM SERUM 128 mmol/L (136-145); TOTAL PROTEIN, SERUM 7.7 g/dL (6.4-8.2)
[2019-03-25 22:55] LABS: FREE T4 0.77 ng/dL (0.76-1.46)
[2019-03-25 23:10] LABS: CARBON DIOXIDE 5.3 mmol/L (21-32)
[2019-03-26] VITALS (7 sets, daily range): BP systolic 93–152; BP diastolic 57–84
[2019-03-26 02:52] LABS: CALCIUM 8.5 mg/dL (8.5-10.1); CHLORIDE SERUM 98 mmol/L (98-107); CREATININE SERUM 1.2 mg/dL (0.7-1.3); GFR1 > 60 mL/min; GLUCOSE SERUM 430 mg/dL (74-106); MAGNESIUM 2.1 mg/dL (1.8-2.4); PHOSPHOROUS 3.7 mg/dL (2.5-4.9); SODIUM SERUM 130 mmol/L (136-145)
[2019-03-26 03:00] LABS: CARBON DIOXIDE 3.4 mmol/L (21-32)
[2019-03-26 09:11] LABS: CALCIUM 8.8 mg/dL (8.5-10.1); CARBON DIOXIDE 10.3 mmol/L (21-32); CHLORIDE SERUM 102 mmol/L (98-107); CREATININE SERUM 1.1 mg/dL (0.7-1.3); GFR1 > 60 mL/min; GLUCOSE SERUM 123 mg/dL (74-106); PHOSPHOROUS 2.4 mg/dL (2.5-4.9); POTASSIUM SERUM 3.7 mmol/L (3.5-5.1); SODIUM SERUM 136 mmol/L (136-145)
[2019-03-26 09:14] LABS: PHOSPHOROUS 2.4 mg/dL (2.5-4.9)
[2019-03-26 09:16] LABS: CHOLESTEROL/HDL RATIO 4.5
[2019-03-26 12:13] LABS: CALCIUM 7.8 mg/dL (8.5-10.1); CARBON DIOXIDE 12.3 mmol/L (21-32); CHLORIDE SERUM 107 mmol/L (98-107); CREATININE SERUM 1.1 mg/dL (0.7-1.3); GFR1 > 60 mL/min; GLUCOSE SERUM 230 mg/dL (74-106); MAGNESIUM 1.7 mg/dL (1.8-2.4); PHOSPHOROUS 1.7 mg/dL (2.5-4.9); POTASSIUM SERUM 3.8 mmol/L (3.5-5.1); SODIUM SERUM 134 mmol/L (136-145)
[2019-03-26 16:18] LABS: CALCIUM 8.2 mg/dL (8.5-10.1); CARBON DIOXIDE 18.5 mmol/L (21-32); CHLORIDE SERUM 106 mmol/L (98-107); CREATININE SERUM 1.1 mg/dL (0.7-1.3); GFR1 > 60 mL/min; GLUCOSE SERUM 206 mg/dL (74-106); MAGNESIUM 1.9 mg/dL (1.8-2.4); PHOSPHOROUS 1.9 mg/dL (2.5-4.9); POTASSIUM SERUM 3.5 mmol/L (3.5-5.1); SODIUM SERUM 135 mmol/L (136-145)
[2019-03-26 20:27] LABS: CALCIUM 7.9 mg/dL (8.5-10.1); CHLORIDE SERUM 105 mmol/L (98-107); CREATININE SERUM 1.1 mg/dL (0.7-1.3); GFR1 > 60 mL/min; GLUCOSE SERUM 217 mg/dL (74-106); MAGNESIUM 1.7 mg/dL (1.8-2.4); PHOSPHOROUS 2.1 mg/dL (2.5-4.9); POTASSIUM SERUM 3.6 mmol/L (3.5-5.1); SODIUM SERUM 134 mmol/L (136-145)
[2019-03-27 06:05] VITALS: BP 97/54
[2019-03-27 06:17] LABS: BASOPHIL % 0.4 % (0-2); PLATELET COUNT 231 x10^3mcL (130-400)
[2019-03-27 06:36] LABS: CALCIUM 7.9 mg/dL (8.5-10.1); CARBON DIOXIDE 19.1 mmol/L (21-32); CHLORIDE SERUM 109 mmol/L (98-107); CREATININE SERUM 0.9 mg/dL (0.7-1.3); GFR1 > 60 mL/min; GLUCOSE SERUM 199 mg/dL (74-106); MAGNESIUM 1.8 mg/dL (1.8-2.4); PHOSPHOROUS 1.6 mg/dL (2.5-4.9); SODIUM SERUM 140 mmol/L (136-145)
[2019-03-27 09:26] VITALS: BP 97/54
[2019-03-27 09:53] VITALS: BP 101/55
[2019-03-28 16:06] VITALS: Ht 185.4 cm; Wt 59.2 kg
== END 2019-03-27 12:02 | disposition home or self-care (01) | DRG 420 ==
LOC: ED 20:26 → IC 23:24 → DU 03-27 01:43
PROVIDERS: Emergency Medicine; ADMIT General Practice
DX: E10.10 Type 1 diabetes mellitus with ketoacidosis without coma (principal); N17.0 Acute kidney failure with tubular necrosis; E10.40 Type 1 diabetes mellitus with diabetic neuropathy, unspecified; K21.9 Gastro-esophageal reflux disease without esophagitis; E83.42 Hypomagnesemia; E83.39 Other disorders of phosphorus metabolism; T38.3X5A Adverse effect of insulin and oral hypoglycemic [antidiabetic] drugs, initial encounter; F41.9 Anxiety disorder, unspecified; F32.9 Major depressive disorder, single episode, unspecified; I10 Essential (primary) hypertension; Z88.1 Allergy status to other antibiotic agents; Z91.040 Latex allergy status; Z91.14 Patient's other noncompliance with medication regimen; Z83.3 Family history of diabetes mellitus; Z87.891 Personal history of nicotine dependence; Y92.89 Other specified places as the place of occurrence of the external cause
CPT/HCPCS: 82962; 83880; 84439; 85378; J1815; J2270; J2405; J3490; J7030; Q0092

== ENCOUNTER 2019-07-11 14:43 | Inpatient (IN) | payer OTHER ==
[~2019-07-11] VITALS: Ht 185.4 cm; Wt 62.6 kg
--- NOTE | 2019-07-11 14:51 | NUR ---
PT BIB [facility] FROM HOME WITH C/O GENERALIZED BODYACHES SINCE WEDNESDAY, PER MEDICS PT WAS SINUS TACHYCARDIA AND FEBRILE ON SCENE, PER MEDICS CAPNOGRAPY BETWEEN 15-20 WITH KUSSMAUL RESPIRATIONS, UPON ARRIVAL PT AAOX4, TACHYNEPIC WITH EVEN CHEST RISE, SKIN PINK DRY AND WARM, PT MOANING STATING "MY BODY HURTS" AND NOTED TO BE LYING IN POSITION, PT REPORTS HX DKA HOWEVER COMPLIANT WITH HIS MEDICATIONS, PT DENIES ANY RECENT TRAUMA AND/OR INJURY, IRREGULAR SHAPED ABSCESS NOTED TO RIGHT NARE, PT PLACED ON FULL CM, SINUS TACYCARDIA
--- NOTE | 2019-07-11 14:51 | NUR ---
RAD AT BEDSIDE PERFORMING MSE
--- NOTE | 2019-07-11 14:52 | NUR ---
MOM AT BEDSIDE
--- NOTE | 2019-07-11 14:58 | NUR ---
18G IV INITIATED TO LAC, +BLOOD RETURN, NO S/S OF INFILTRATION, EASY FLUSH WITH 10CC OF NS.
--- NOTE | 2019-07-11 14:58 | NUR ---
LAB AT BEDSIDE
--- NOTE | 2019-07-11 14:59 | NUR ---
ICE CHIPS PROVIDED PER PT REQUEST AND MD WHITE VERBAL OKAY
--- NOTE | 2019-07-11 15:00 | NUR ---
LAB AT BEDSIDE
--- NOTE | 2019-07-11 15:03 | NUR ---
LAB AT BEDSIDE FOR BLOOD DRAW.
--- NOTE | 2019-07-11 15:03 | NUR ---
DARRYL BUCKLEY AT BEDSIDE FOR EKG.
--- NOTE | 2019-07-11 15:03 | NUR ---
RT GRIFFIN AT BEDSIDE FOT ABG DRAW.
--- NOTE | 2019-07-11 15:04 | NUR ---
PT REFUSING ABGS, DR PIERCE MADE AWARE.
--- NOTE | 2019-07-11 15:15 | NUR ---
PER DR PIERCE 3L NS FLUIDS ARE TO BE ADMINISTERED "WIDE OPEN", PT MEDICATED PER DR PIERCE VERBAL ORDERS.
[2019-07-11 15:18] LABS: PLATELET COUNT 240 x10^3mcL (130-400); RED CELL DISTRIBUTION WIDTH 14.5 % (11.5-14.5)
--- NOTE | 2019-07-11 15:26 | NUR ---
COOLING BLANKET PLACED PER MD RAD VERBAL ORDER AT 85 DEGREES FARENHEIT
[2019-07-11 15:29] LABS: CALCIUM 9.6 mg/dL (8.5-10.1); CARBON DIOXIDE 11.2 mmol/L (21-32); CHLORIDE SERUM 92 mmol/L (98-107); CREATININE SERUM 1.1 mg/dL (0.7-1.3); GFR1 > 60 mL/min; GLUCOSE SERUM 447 mg/dL (74-106); POTASSIUM SERUM 4.6 mmol/L (3.5-5.1); SODIUM SERUM 132 mmol/L (136-145)
--- NOTE | 2019-07-11 15:29 | NUR ---
PT AWAKE AND MOANING REQUESTING PAIN MEDICATION, MD WHITE MADE AWARE
--- NOTE | 2019-07-11 15:34 | NUR ---
[facility] BLANKET COOLER APPIED UNDER PATIENT. BLANKET TEMP SET AT 85 DEGREES F
[2019-07-11 15:35] LABS: ALKALINE PHOSPHATASE 191 U/L (46-116); ALT/SGPT 27 U/L (16-63); AST/SGOT 25 U/L (15-37); BILIRUBIN TOTAL 1.4 mg/dL (0.20-1.00); LIPASE 30 IU/L (73-393)
[2019-07-11 15:37] LABS: TOTAL PROTEIN, SERUM 8.5 g/dL (6.4-8.2)
[2019-07-11 15:38] LABS: BAND NEUTROPHIL 9 % (0-10); BASOPHIL 0 % (0-2); MONOCYTE 7 % (0-7); SEGMENTED NEUTROPHILS 79 % (37-75)
[2019-07-11 15:40] LABS: rbc morphology (normal/abnorm) NORMAL (NORMAL)
[2019-07-11 15:41] LABS: PLATELET MORPHOLOGY PLATELETS NORMAL
[2019-07-11 15:53] LABS: ALBUMIN 2.9 g/dL (3.4-5.0)
--- NOTE | 2019-07-11 16:03 | NUR ---
PT REQUESTING MORE PAIN MEDICATION STATING "IT IS BACK TO A 10" MOANING AND SINUS TACYCARDIA NOTED ON CM
--- NOTE | 2019-07-11 16:20 | NUR ---
POTASSIUM LAB REVIEWED
--- NOTE | 2019-07-11 16:25 | NUR ---
PT STS "PAIN WENT DOWN" PT NO LONGER MOANING, PT IN POSITION OF COMFORT, PT APPEARS CALM IN NAD AT THIS TIME
--- NOTE | 2019-07-11 16:25 | NUR ---
COOLING BLANKET DECREASED TO 70 DEGREES FARENHEIT
--- NOTE | 2019-07-11 16:26 | NUR ---
PT TAKEN TO CT VIA ILDEFONSO, PT AAOX4, VSS
--- NOTE | 2019-07-11 17:00 | NUR ---
PT BACK FROM CT VIA G[place]UC[place]NA IN STABLE CONDITION, VSS, PT STS "I FEEL A LOT BETTER" RESPS E/U
--- NOTE | 2019-07-11 17:10 | NUR ---
INSULIN DRIP NOT STARTED AT THIS TIME, AWAITING MD ORDER
--- NOTE | 2019-07-11 17:13 | NUR ---
LAB AT BEDSIDE
[2019-07-11 17:23] LABS: MAGNESIUM 2.1 mg/dL (1.8-2.4); PHOSPHOROUS 3.5 mg/dL (2.5-4.9)
[2019-07-11 17:24] LABS: CHOLESTEROL/HDL RATIO 5.3
--- NOTE | 2019-07-11 17:24 | NUR ---
PORTABLE CXR AT BEDSIDE, PT COOPERATIVE, RESPS E/U
[2019-07-11 17:28] LABS: UA SPECIFIC GRAVITY 1.025 (1.005-1.035); microscopic required? YES; urine erythrocyte 1+ (NEGATIVE)
[2019-07-11 17:38] LABS: AMPHETAMINE QUAL UR NONE DETECTED (See below)
--- NOTE | 2019-07-11 17:39 | NUR ---
DR BANDA SPOKE WITH ER DR WHITE, PT CANT GO TO ICU TILL CT SCAN IS AVAIL. PRIMARY NURSE ROMAN IS AWARE OF.
[2019-07-11 17:40] LABS: CALCIUM 8.9 mg/dL (8.5-10.1); CHLORIDE SERUM 95 mmol/L (98-107); CREATININE SERUM 0.9 mg/dL (0.7-1.3); GFR1 > 60 mL/min; GLUCOSE SERUM 428 mg/dL (74-106); MAGNESIUM 1.9 mg/dL (1.8-2.4); PHOSPHOROUS 3.7 mg/dL (2.5-4.9); POTASSIUM SERUM 4.7 mmol/L (3.5-5.1); SODIUM SERUM 131 mmol/L (136-145)
[2019-07-11 17:50] LABS: CARBON DIOXIDE 9.1 mmol/L (21-32)
--- NOTE | 2019-07-11 17:50 | NUR ---
PT REMOVED NC STATING "I DON'T NEED IT ANYMORE, MY NOSE ITCHES FROM MY ALLERGIES I WANT IT OFF" PT SPO2 98% VIA RA, RESPS E/U, NO S/S RESP DISTRESS NOTED, MD WHITE MADE AWARE
--- NOTE | 2019-07-11 17:52 | NUR ---
PER RAD VERBAL ORDER D/C COOLING BLANKET, COOLING BLANKET D/C
--- NOTE | 2019-07-11 18:03 | NUR ---
INSULIN DRIP RATE STARTED AT 5 UNITS/H PER EMAR AND BG 396, VERIFIED WITH CHRIS BIGGS
--- NOTE | 2019-07-11 18:10 | NUR ---
PT ASLEEP BUT AROUSABLE IN POSITION OF COMFORT, RESPS E/U
--- NOTE | 2019-07-11 18:18 | NUR ---
ICE CHIPS PROVIDED PER PT REQUEST AND MD WHITE VERBAL OKAY
--- NOTE | 2019-07-11 18:19 | NUR ---
MOM AT BEDSIDE
--- NOTE | 2019-07-11 18:42 | NUR ---
BG 438, PER MD RAD VERBAL ORDER INCREASE INSULIN DRIP TO 7 UNITS/HR, INSULIN DRIP INFUSING AT 7 UNITS PER HR, VERIFIED WITH CHRIS BIGGS
--- NOTE | 2019-07-11 18:43 | NUR ---
RAD AT BEDSIDE DISCUSSING POC
--- NOTE | 2019-07-11 18:45 | NUR ---
PT COOPERATIVE AND TALKING WITH MD JUANITA SINGH AT BEDSIDE, MOM AT BEDSIDE WELL, PT IN NAD, RESPS E/U, VSS
--- NOTE | 2019-07-11 19:17 | NUR ---
WAS TOLD TO CALL BACK AT 1905 FOR REPORT OF PT, CALLED AT 1910 AND WAS TOLD TO CALL BACK IN 10 MIN BY OLGA RN D/T SHIFT REPORT IN PROGRESS AND PLUGGER MAN UNAVAILABLE.
--- NOTE | 2019-07-11 20:22 | NUR ---
RECEIVED REPORT FROM ER NURSE. PT IS ALERT AND ORIENTED X4. PUPILS REACTIVE TO LIGHT. PT IS BREATHING E/U ON 2L NC. LUNG SOUNDS CLEAR TO BILATERAL UPPER LOBES, DIMINISHED TO BILATERAL LOWER LOBES. S1 S2 HEART SOUNDS AUSCULTATED. SINUS TACHYCARDIA ON MONITOR. PULSES MODERATE X4. CAP REFILL <3 SECS X4. SKIN IS WARM AND CONSISTENT WITH ETHNICITY. NO EDEMA NOTED. PERIPHERAL IV TO RIGHT FA, LEFT FA, AND L HAND. NS INFUSING AT 250 ML/HR, NS WITH 20 MEQ K+ INFUSING AT 250 ML/HR, AND INSULIN INFUSING AT 7 U/HR. ABD IS SOFT AND FLAT WITH ACTIVE BOWEL SOUNDS X4Q. PT VOIDS FREELY USING URINAL. PT HAS ABRASION TO RIGHT SIDE OF NOSE, WITH REDNESS TO SURROUNDING TISSUE. WILL CONTINUE TO MONITOR.
[2019-07-11 20:41] VITALS: BP 124/81
--- NOTE | 2019-07-11 22:00 | NUR ---
PT TAKEN OFF OF 2L NC. NO LONGER NEEDED, O2 SATURATION AT 96% ON ROOM AIR. WILL CONTINUE TO MONITOR.
--- NOTE | 2019-07-11 22:11 | NUR ---
TITRATED INSULIN DRIP TO 3UNITS/HR. WILL CONTINUE TO MONITOR.
--- NOTE | 2019-07-11 22:30 | NUR ---
PAGE GATE DR. SHAHID FOR ORDERS FOR DIFFERENT PAIN MEDICATION. PAIN IS NOT BEING RELIEVED BY NORCO, AND PATIENT IS YELLING IN PAIN. WILL AWAIT FURTHER ORDERS.
--- NOTE | 2019-07-11 22:48 | NUR ---
PT C/O BODY PAIN 06/10. MEDICATED NORCO 7.5/325MG PO ORDERED. WILL CONTINUE TO MONITOR.
--- NOTE | 2019-07-12 | NUR ---
CALLED DR. SHAHID'S CELL PHONE FOR PAIN MEDICATIONS. STILL HAS NOT ORDERED ANYTHING FOR PAIN. PT REFUSING BLOOD DRAW UNTIL HE RECEIVES HIS PAIN MEDICATION. STATED THAT HE WILL PUT IN ORDER.
--- NOTE | 2019-07-12 | NUR ---
TITRATED D5 1/2 NS FROM 250 ML/HR TO 200 ML/HR FOR BS OF 157.
--- NOTE | 2019-07-12 00:29 | NUR ---
LAB AT BEDSIDE FOR BLOOD DRAW.
--- NOTE | 2019-07-12 01:16 | NUR ---
CALLED MILLICENT BACK, TOLD PT THAT HE NEEDS THE BLOOD DRAW OR WE CANNOT PROGRESS WITH HIS CARE DUE TO THE INABILITY TO SEE WHAT HIS GAP IS. PT FINALLY AGREED. STILL AWAITING FOR DR. SHAHID TO PLACE ORDER FOR PAIN MEDICATION.
[2019-07-12 01:28] LABS: CALCIUM 8.9 mg/dL (8.5-10.1); CHLORIDE SERUM 102 mmol/L (98-107); GFR1 > 60 mL/min; GLUCOSE SERUM 164 mg/dL (74-106); MAGNESIUM 1.8 mg/dL (1.8-2.4); PHOSPHOROUS 1.9 mg/dL (2.5-4.9); POTASSIUM SERUM 3.9 mmol/L (3.5-5.1); SODIUM SERUM 138 mmol/L (136-145)
--- NOTE | 2019-07-12 02:21 | NUR ---
TITRATED D5 1/2 NS FROM 200 ML/HR TO 150 ML/HR FOR BS OF 178.
--- NOTE | 2019-07-12 02:35 | NUR ---
WAS GOING TO PROVIDE PT WITH PAIN MEDICATION PER PT RR IN THE HIGH 30'S, HR IN 100'S, AND PT STATING HE WAS HAVING PAIN. WAS ABOUT TO ADMINISTER MED WHEN PT THEN REFUSED. WASTED MED, AND WITNESSED BY SECOND RN.
[2019-07-12 05:00] LABS: PLATELET COUNT 227 x10^3mcL (130-400); RED CELL DISTRIBUTION WIDTH 14.3 % (11.5-14.5)
[2019-07-12 05:07] LABS: CALCIUM 8.4 mg/dL (8.5-10.1); CARBON DIOXIDE 19.7 mmol/L (21-32); CHLORIDE SERUM 103 mmol/L (98-107); CREATININE SERUM 0.8 mg/dL (0.7-1.3); GFR1 > 60 mL/min; GLUCOSE SERUM 175 mg/dL (74-106); MAGNESIUM 1.7 mg/dL (1.8-2.4); PHOSPHOROUS 1.6 mg/dL (2.5-4.9); POTASSIUM SERUM 3.5 mmol/L (3.5-5.1); SODIUM SERUM 134 mmol/L (136-145)
[2019-07-12 05:19] LABS: BAND NEUTROPHIL 6 % (0-10); BASOPHIL 0 % (0-2); MONOCYTE 5 % (0-7); SEGMENTED NEUTROPHILS 85 % (37-75)
[2019-07-12 05:20] LABS: PLATELET MORPHOLOGY PLATELETS NORMAL; rbc morphology (normal/abnorm) NORMAL (NORMAL)
[2019-07-12 05:32] VITALS: BP 114/70
--- NOTE | 2019-07-12 05:36 | NUR ---
PT REMAINED ASLEEP BUT EASILY AROUSABLE. NO SOB NOTED. C/O PAIN. MEDICATED MORPHINE 2MG IV ORDERED. IVF INFUSING WELL. INSULIN DRIP @3UML/HR. BED IN LOWEST POSITION,CALL LIGHT WITHIN REACH. WILL CONTINUE TO MONITOR.
[2019-07-12 07:38] VITALS: BP 120/71
--- NOTE | 2019-07-12 08:28 | NUR ---
PT REFUSED BREAKFAST AT THIS TIME.
[2019-07-12 09:16] VITALS: Ht 185.4 cm; Wt 62.6 kg
[2019-07-12 09:46] LABS: CALCIUM 8.7 mg/dL (8.5-10.1); CARBON DIOXIDE 21.4 mmol/L (21-32); CHLORIDE SERUM 103 mmol/L (98-107); CREATININE SERUM 0.8 mg/dL (0.7-1.3); GFR1 > 60 mL/min; GLUCOSE SERUM 134 mg/dL (74-106); MAGNESIUM 1.7 mg/dL (1.8-2.4); PHOSPHOROUS 1.3 mg/dL (2.5-4.9); POTASSIUM SERUM 3.9 mmol/L (3.5-5.1); SODIUM SERUM 135 mmol/L (136-145)
--- NOTE | 2019-07-12 10:00 | NUR ---
ANION GAP 10.6. SECOND CONSECUTIVE ANION GAP CLOSURE.
--- NOTE | 2019-07-12 10:13 | NUR ---
RESIDENT UPDATED ABOUT SECOND ANION GAP CLOSURE. WILL CARRY OUT NEW ORDERS.
--- NOTE | 2019-07-12 10:29 | NUR ---
PT VOIDED 500 ML YELLOW URINE IN URINAL.
[2019-07-12 11:50] VITALS: BP 123/71
--- NOTE | 2019-07-12 12:45 | NUR ---
PT C/O PAIN 10/10 GENERALIZED ACHING. PT MEDICATED WITH MORPHINE 1MG IVP PER ORDERS. PRIMARY RN MADE AWARE. WILL CONT TO MONITOR.
--- NOTE | 2019-07-12 14:01 | NUR ---
PT REFUSED TO EAT LUNCH. STATES "I WILL LATER, I JUST WANT TO SLEEP."
--- NOTE | 2019-07-12 14:03 | NUR ---
PT STATES PAIN IS STILL 7/10 AFTER RECEIVING MORPHINE IVP. WILL CONTINUE TO MONITOR.
--- NOTE | 2019-07-12 17:07 | NUR ---
POC BLOOD GLUCOSE 223. PT REFUSED SQ INSULIN. RN ATTEMPTED TO EDUCATE PT REGARDING THE DECISION, AND THE PT STATED "I ALREADY FEEL SICK, THAT WILL MAKE ME FEEL WORSE. I'VE BEEN DOING THIS MY WHOLE LIFE, AND I DO NOT WANT INSULIN. THE LANTUS WILL KICK IN SOON. DO NOT LET ANYONE COME IN MY ROOM FOR ANY REASON." WILL CONTINUE TO MONITOR PT.
--- NOTE | 2019-07-12 17:13 | NUR ---
DR. MARTINEZ PAGED AND CALLED BACK REGARDING PT'S REFUSAL OF SQ REGULAR INSULIN. SHE STATED SHE WAS OFF WORK AND WOULD UPDATE DR. STEPHEN. AWAITING CALL FROM DR. STEPHEN.
--- NOTE | 2019-07-12 17:37 | NUR ---
MOTHER IN UNIT AND MADE AWARE PT REFUSING INSULIN COVERAGE, PER MOTHER SHE WILL TRY AND CONVINCE HIM.
--- NOTE | 2019-07-12 17:57 | NUR ---
PT AGREED TO TAKE INSULIN.
[2019-07-12 18:40] VITALS: BP 130/74
--- NOTE | 2019-07-12 18:40 | NUR ---
RECEIVED PT FROM ICU [facility] WHEELCHAIR, PT IS AAOX4. C/O DIZZINESS AND 10/10 GENERALIZED BODY PAIN. NO SOB NOTED. ON TELE#15, SR ON THE MONITOR. IV SITES ON THE RAC, LAC AND RIGHT HAND ARE PATENT AND INTACT. UNABLE TO PERFORM SKIN ASSESSMENT, PT STATED THAT HE IS IN SO MUCH PAIN AT THIS TIME. SIDE RAILS UPX2. CALL LIGHT ON REACH. ENDORSED TO PRIMARY NURSE HAILEIN FOR CONTINUITY OF CARE
--- NOTE | 2019-07-12 18:42 | NUR ---
SEEN PATIENT IN BED AAOX4. NO ANY DISTRESS NOTED. BREATHIN E/U ON ROOM AIR. PATIENT APPEARS VERY UPSET. STATED I DO NOT WANNA TALK WITH YOU AT THIS TIME, PLEASE CLOSE THE DOOR. CALL LIGHT PLACED WITH EASY REACH AND INSTRUCTED TO CALL NEEDED FOR HELP. SIDERAILS UP X2. DOOR CLOSED PER PATIENT REQUESTED.
[2019-07-12 19:09] VITALS: BP 129/70
--- NOTE | 2019-07-12 19:52 | NUR ---
AWAKE AND ALERT, ORIENTED TO NAME, PLACE, TIME AND SITUATION. SPEECH CLEAR AND APPROPRIATE. HOB ELEVATED 30 DEG. BREATHING EVEN AND UNLABORED ON ROOM AIR. STATED HAVING GENERALIZED PAIN, EXPLAINED PAIN MEDICATIONS ORDERED, MAY HAVE MORPHINE 1MG BY 8PM. VERBALIZED UNDERSTANDING. STATED "I JUST WANT TO BE LEFT ALONE FOR NOW". UNABLE TO DO SKIN ASSESSMENT OF BACK.
--- NOTE | 2019-07-12 21:05 | NUR ---
INFORMED DR. SHAHID PT TEMP 101, PT TOOK TYLENOL PO. INFORMED DR. SHAHID BLOOD SUGAR 182, PT REFUSED REGULAR INSULINE PER SLIDING SCALE AND DUE LANTUS. PT STATED HE HAS NOT EATEN AND CANNOT EAT AND STATED "IT HURTS TOO MUCH TO CHEW". DR. SHAHID STATED TO ENCOURAGE PT TO EAT AND ADMINISTER INSULIN ORDERED
--- NOTE | 2019-07-12 21:20 | NUR ---
LATE ENTRY: 2000H - COOLING MEASURES IN PLACE
--- NOTE | 2019-07-12 21:48 | NUR ---
TEMP 100.1F. CONTINUING COOLING MEASURES.
--- NOTE | 2019-07-12 22:51 | NUR ---
EARLIER ENCOURAGED PT TO EAT. PT DID NOT WANT TO EAT.
--- NOTE | 2019-07-13 00:18 | NUR ---
eyes closed, breathing even and unlabored on room air. hob elevated 30 deg. call light within easy reach.
[2019-07-13 05:02] VITALS: BP 129/79
--- NOTE | 2019-07-13 05:32 | NUR ---
BLOOD SUGAR 238. EXPLAINED TO PT HIS BLOOD SUGAR IS GOING UP. PT AGREED TO INSULIN ADMINISTRATION PER SLIDING SCALE.
--- NOTE | 2019-07-13 06:39 | NUR ---
eyes closed, easily awakened. breathing even and unlabored on room air. hob elevated 30 deg. call light within easy reach. no moaning or grimacing noted at this time.
[2019-07-13 06:52] LABS: PLATELET COUNT 226 x10^3mcL (130-400); RED CELL DISTRIBUTION WIDTH 14.2 % (11.5-14.5)
--- NOTE | 2019-07-13 07:10 | NUR ---
EYES CLOSED, BREATHING EVEN AND UNLABORED. CALL LIGHT WITHIN EASY REACH, IN NO ACUTE DISTRESS. ENDORSED TO NURSE NAQVI
[2019-07-13 07:28] LABS: CALCIUM 8.2 mg/dL (8.5-10.1); CARBON DIOXIDE 23.2 mmol/L (21-32); CHLORIDE SERUM 102 mmol/L (98-107); CREATININE SERUM 0.5 mg/dL (0.7-1.3); GFR1 > 60 mL/min; GLUCOSE SERUM 223 mg/dL (74-106); PHOSPHOROUS 1.5 mg/dL (2.5-4.9); POTASSIUM SERUM 3.1 mmol/L (3.5-5.1); SODIUM SERUM 136 mmol/L (136-145)
--- NOTE | 2019-07-13 07:55 | NUR ---
REEIVED AWAKE, ALERT AND ORIENTED. IN NO RESP. DISTRESS. APPEARS VERY ANGRY , TOLD THE DOCTOR TO LEAVE THE ROOM BECAUSE HE HAS TO SLEEP. NO C/O PAIN AT THIS TIME. REFUSED VS THIS AM. CALL LIGHT WITHIN REACH. IVF INFUSING WELL. WILL CONTINUE WITH PLAN OF CARE.
--- NOTE | 2019-07-13 09:02 | NUR ---
PT REFUSED LANTUS INSULIN, STATED "I AM NOT GOING TO EAT BREAKFAST SO I DONT WANT INSULIN". REFUSED VITAL SIGN TAKEN AND BLOOD DRAW BECAUSE HE WANT TO SLEEP. WILL NOTIFY THE DOCTOR.
--- NOTE | 2019-07-13 09:22 | NUR ---
PT REFUSED BLOOD DRAW FOR JOEY DUMONT THIS AM, PER PHARMACIST MR. KANG , OK TO USE AM BLOOD. GEAR MILLING MACHINE SET UP OPERATOR. NOTIFIED
[2019-07-13 09:34] LABS: BAND NEUTROPHIL 30 % (0-10); BASOPHIL 0 % (0-2); MONOCYTE 5 % (0-7); PLATELET MORPHOLOGY PLATELETS NORMAL; SEGMENTED NEUTROPHILS 59 % (37-75); rbc morphology (normal/abnorm) ABNORMAL (NORMAL); tear drop cell (dacryocyte) 1+
--- NOTE | 2019-07-13 10:37 | NUR ---
P.T. NOTES RECEIVED P.T. EVAL ORDER; Pt SLEEPY, WOKE UP W/ P.T. KEPT EYES CLOSED, DECLINED TO PARTICIPATE W/ P.T., EXPLAINED RISKS OF BED BOUND, IMPORTANCE OF THERAPY, Pt STILL REFUSED, STATES HE HAS NOT SLEPT FOR 3 DAYS, WANTS TO SLEEP, WANTS CURTAIN CLOSED, LIGHTS OFF, APPRECIATIVE; IRRITABLE; CALL LANG, PHONE, TABLE IN REACH, BED ALARM ON; USES URINAL; FF UP WHEN ABLE.
--- NOTE | 2019-07-13 12:31 | NUR ---
PT C/O BACK PAIN 06/10. MEDICATED WITH NORCO PO. GLU LEVEL 182, PT REFUSED INSULIN STATED HE IS NOT GOING TO EAT LUNCH AND THAT HE WANT TO BE LEFT ALONE TO SLEEP.
--- NOTE | 2019-07-13 13:58 | NUR ---
Initial Nutrition Assessment: 257T/A RED SILVA IA HR Dx: DKA, sepsis PMHx: Type I DM, Amphetamine abuse, HTN, medical noncompliance and diabetic neuropathy PSHx: None Labs: K 3.1L, BG 223H, P 1.5L, TG 255H, A1C 10.5H, WBC 12.3H Meds: Colace, D 50%, humulin, lantus, morphine, norco, vancomycin, zofran Diet: [facility] PO Intake: (07/12) lunch 10%, breakfast, dinner 0% Ht: 185.42 cm (73") Wt: 62.6 kg (138#) BMI: 18.2 kg/m2 Bed scale: unable to access IBW: 184# (83 kg) %IBW: 75 UBW: unable to access Age: 38/M Food Allergies: NKFA Skin: small abrasion R nose Kavin: 17 Edema: none GI: Last BM: 07/11 Per H&P, Pt is a 38 Yo male with PMH of DM type I, medication noncompliance, Amphetamine abuse and diabetic neuropathy, who was brought to the ER from home with generalized body pain for 3 days. RDN Visit (07/13): Patient refused to communicate and did not want anyone to bother him. I was unable to ask him any questions. Problem with: N/V/D/C: Problems with: Chewing/Swallowing: unable to access Current appetite: unable to access Recent wt change: unable to access %wt change: n/a Vitamin/Supplement use: unable to access Special diet at home: unable to access Physical activity: unable to access Nutrition education given: not possible at this time Food-drug interactions: Colace- high fiber w/9489-6817 ml fluids Education given: n/a Estimated Nutritional Needs Based on current body weight 62.6 kg Energy: 1235-7324 kcal/d (30-35 kcal/kg) Protein: 62.6-75 g/d (1.0-1.2 g/kg) - preserve LBM Fluid: 7816-9597 ml/d (1 ml/kcal) or per doctor Nutrition Diagnosis 1. Malnutrition related to poor PO as evidenced by documented PO 10% and emaciated appearance. Intervention 1. [facility]. 2. Recommend Glucerna BID Discussed recommendations with Dr. Sy Monitor/Evaluate Goal: PO intake at least 75% of estimated needs Monitor: PO intake, Labs, GI function F/U in 2-3 days as high risk 07/15-
--- NOTE | 2019-07-13 13:58 | NUR ---
1. Recommend continuing [facility] diet. 2. Recommend Glucerna BID Discussed recommendations with Dr. Sy
--- NOTE | 2019-07-13 14:16 | NUR ---
PHYSICAL THERAPY NOTE ATTEMPTED FOR PHYSICAL THERAPY EVAL. PATIENT REFUSED
[2019-07-13 15:52] VITALS: BP 118/73
--- NOTE | 2019-07-13 17:50 | NUR ---
RECEIVED A CALL FROM [facility] OF BLOOD CULTURE + GRAM +COCCI IN [place], DR. MARTINEZ NOTIFIED.
--- NOTE | 2019-07-13 18:43 | NUR ---
PT WAS MEDICATED WITH NORCO FOR GENERALIZED BODY ACHE WITH FAIR RELIEF. RESTING AT THIS TIME. NO ACUTE DISTRESS NOTED. MOTHER AT BEDSIDE. PM CARE DONE. IVF INFUSING WELL AND SITE CLEAR. CALL LIGHT WITHIN REACH. WILL BE ENDORSED TO INCOMING SHIFT.
[2019-07-13 19:19] VITALS: BP 117/80
--- NOTE | 2019-07-13 20:40 | NUR ---
TEMP 101F. TYLENOL 650MG ADMINISTERED PO. COOLING MEASURES INITIATED
--- NOTE | 2019-07-13 21:04 | NUR ---
LATE ENTRY: 1900H - AWAKE AND ALERT, ORIENTED TO NAME, PLACE, TIME AND SITUATION. SPEECH CLEAR AND APPROPRIATE. STILL WITH SWELLING TO RIGHT EYE AND RIGHT NARE. BREATHING EVEN AND UNLABORED. ON CONTACT ISOLATION. IVF INFUSING WELL TO RIGHT AC. PT'S MOTHER IN ROOM
--- NOTE | 2019-07-13 23:35 | NUR ---
MOANING IN PAIN, NORCO TABLET ADMINISTERED PO FOR PAIN. RANDOM BLOOD SUGAR CHECKED - 221, TRENDING DOWN.
--- NOTE | 2019-07-13 23:54 | NUR ---
PT STATED TO ASK PHYSICIAN IF FREQUENCY OF NORCO MAY BE SHORTENED BECAUSE THE PAIN COMES BACK EARLIER THAN 6 HOURS AFTER NORCO ADMINISTRATION. INFORMED DR. SHAHID.
--- NOTE | 2019-07-14 00:01 | NUR ---
NEW ORDER RECEIVED
--- NOTE | 2019-07-14 01:35 | NUR ---
EYES CLOSED, SNORING LIGHTLY. BREATHING EVEN AND UNLABORED. HOB ELEVATED 30 DEG. CALL LIGHT WITHIN EASY REACH.
[2019-07-14 05:11] VITALS: BP 138/88
--- NOTE | 2019-07-14 06:16 | NUR ---
EYES CLOSED, EASILY AWAKENED. HOB ELEVATED 30 DEG. BREATHING EVEN AND UNLABORED. KEPT ON CONTACT ISOLATION. IVF INFUSING WELL. IV SITE FREE FROM ERYTHEMA OR SWELLING. CALL LIGHT WITHIN EASY REACH.
[2019-07-14 06:50] LABS: ALKALINE PHOSPHATASE 165 U/L (46-116); ALT/SGPT 23 U/L (16-63); AST/SGOT 25 U/L (15-37); BILIRUBIN TOTAL 0.5 mg/dL (0.20-1.00); CALCIUM 8.3 mg/dL (8.5-10.1); CARBON DIOXIDE 29.1 mmol/L (21-32); CHLORIDE SERUM 101 mmol/L (98-107); CREATININE SERUM 0.6 mg/dL (0.7-1.3); GFR1 > 60 mL/min; GLUCOSE SERUM 202 mg/dL (74-106); MAGNESIUM 2.1 mg/dL (1.8-2.4); PHOSPHOROUS 1.4 mg/dL (2.5-4.9); POTASSIUM SERUM 3.5 mmol/L (3.5-5.1); SODIUM SERUM 137 mmol/L (136-145); TOTAL PROTEIN, SERUM 6.7 g/dL (6.4-8.2)
[2019-07-14 06:53] LABS: ALBUMIN 1.7 g/dL (3.4-5.0)
[2019-07-14 06:58] LABS: PLATELET COUNT 255 x10^3mcL (130-400); RED CELL DISTRIBUTION WIDTH 14.4 % (11.5-14.5)
--- NOTE | 2019-07-14 07:12 | NUR ---
REPORT TAKEN FROM COOKING SHOW HOST NURSE AT THE BEDSIDE, PATIENT RESTING COMFORTABLY AT THIS TIME, DID NOT WAKE FOR REPORT, CHEST RISE AND FALL OBSERVED, BREATHING E/U, WILL CONTINUE TO MONITOR.
--- NOTE | 2019-07-14 07:18 | NUR ---
eyes closed, breathing even and unlabored. kept on contact isolation. in no acute distress. endorsed to nurse alivia
[2019-07-14 10:06] VITALS: BP 144/87
[2019-07-14 11:14] LABS: BAND NEUTROPHIL 5 % (0-10); BASOPHIL 0 % (0-2); MONOCYTE 7 % (0-7); PLATELET MORPHOLOGY PLATELETS NORMAL; SEGMENTED NEUTROPHILS 83 % (37-75)
[2019-07-14 11:15] LABS: rbc morphology (normal/abnorm) ABNORMAL (NORMAL)
--- NOTE | 2019-07-14 13:53 | NUR ---
PHYSICAL THERAPY NOTE PATIENT REFUSED PHYSICAL THERAPY EVAL THREE CONSICUTIVE TIME, EDUCATED THE IMPORTANCE OF MOBILITY. D/C EVAL ORDER SECONDARY TO NON COMPLIANCE.
[2019-07-14 16:50] VITALS: BP 134/79
--- NOTE | 2019-07-14 19:29 | NUR ---
report given to shift supervisor nurse at the bedside, care endorsed
--- NOTE | 2019-07-14 19:35 | NUR ---
RECEIVED PT FROM MISSAEL ARAGON RN. PT AAOX4. DENIES CHAU/DIZZINESS. PT BREATHING EVEN AND UNLABORED ON RA. NO SOB NOTED. PT DENIES CHEST PAIN/PRESSURE. GENERALIZED WEAKNESS. IV RAC PATENT, INFUSING WELL. NO SIGNS OF INFILTRATION NOTED. RIGHT NARE AND RIGH EYE SWOLLEN WITH ABRASION. ABD SOFT/ROUND ACTIVE BOWEL SOUNDS. DENIES ABD PAIN/N/V. PT ABLE TO TURN AND REPOSITION SELF. CALL BUTTON WITHIN REACH. SAFETY PRECAUTIONS IN PLACE. CONTACT ISOLATION. WILL CONTINUE TO MONITOR.
--- NOTE | 2019-07-14 20:30 | NUR ---
PT REPORTED HAVING PAIN BACK OF HEAD AND RIGHT SIDE OF FACE 07/11. MEDICATED PER EMAR. CALL BUTTON WITHIN REACH. SAFETY PRECAUTIONS IN PLACE. WILL CONTINUE TO MONITOR.
[2019-07-14 21:35] VITALS: BP 136/76
--- NOTE | 2019-07-14 22:48 | NUR ---
PT REPORTED HAVING PAIN ON BACK OF HEAD AND SIDE OF FACE /. MEDICATED PER EMAR. CALL BUTTON WITHIN REACH. SAFETY PRECAUTIONS IN PLACE. WILL CONTINUE TO MONITOR.
--- NOTE | 2019-07-15 00:48 | NUR ---
PT REPORTED HAVING BACK OF HEAD PAIN. MEDICATED PER EMAR. WILL MONITOR.
--- NOTE | 2019-07-15 01:08 | NUR ---
DR GRAHAM MADE AWARE PT CT WILL BE DONE SOMETIME TONIGHT.
--- NOTE | 2019-07-15 03:48 | NUR ---
PT REPORTED HAVING PAIN ON THE BACK OF HEAD. MEDICATED PER EMAR. CALL BUTTON WITHIN REACH. SAFETY PRECAUTIONS IN PLACE. WILL MONITOR.
--- NOTE | 2019-07-15 05:29 | NUR ---
PT SLEPT ON AND OFF THROUGHOUT THE NIGHT. NO SIGNS OF DISTRESS. BREATHING EVEN AND UNLABORED ON RA WITH NO SOB NOTED. IV PATENT, INFUSING WELL NO SIGNS OF INFILTRATION. PT CONTINUE TO REPORT HAVING PAIN ON BACK OF HEAD AND RIGHT SIDE OF FACE MEDICATED PER EMAR WITH SOME RELIEF. PT AMBULATES WITH BRP. PT IN NO SIGNS OF DISTRESS. CALL BUTTON WITHIN REACH. SAFETY PRECAUTIONS IN PLACE. CONTACT ISOLATION. WILL CONTINUE TO MONITOR AND ENDORSE CARE TO DAY SHIFT RN.
--- NOTE | 2019-07-15 05:48 | NUR ---
PT REPORTED BACK OF HEAD PAIN. MEDICATED PER EMAR. SAFETY PRECAUTIONS IN PLACE. WILL CONTINUE TO MONITOR.
[2019-07-15 05:54] VITALS: BP 148/80
[2019-07-15 06:23] LABS: BASOPHIL % 0.2 % (0-2); PLATELET COUNT 310 x10^3mcL (130-400)
[2019-07-15 06:29] LABS: CALCIUM 8.5 mg/dL (8.5-10.1); CARBON DIOXIDE 32.5 mmol/L (21-32); CHLORIDE SERUM 98 mmol/L (98-107); CREATININE SERUM 0.7 mg/dL (0.7-1.3); GFR1 > 60 mL/min; GLUCOSE SERUM 172 mg/dL (74-106); SODIUM SERUM 140 mmol/L (136-145)
[2019-07-15 07:02] LABS: POTASSIUM SERUM 2.8 mmol/L (3.5-5.1)
[2019-07-15 07:14] LABS: RED CELL DISTRIBUTION WIDTH 14.8 % (11.5-14.5)
--- NOTE | 2019-07-15 07:20 | NUR ---
RC'D PT RESTING IN BED TENSE AND ANXIOUS.PT A/A/O/X4, SPEECH CLEAR AND APPROPRIATE. PT REPORTS CHAU BUT WAITING TO COMPLETE CT TO THEN RECEIVE MEDS. MEDSURG. PT DENIES CP. PALP PULSES, NO EDEMA NOTED. RESPIRAITONS EQUAL AND UNLABORED. LUNGS CTA. ON RA, DENIES SOB. ABDOMEN SOFT AND NONTENDER. ACTIVE BS. DENIES N/V. VOIDS FREELY. GENERALIZED WEAKNESS. RIGHT EYE/NARE ABRASION, PRECISION FARMING COORDINATOR. IV PATENT AND INTACT. BED IN LOW POSITION. CALL LGIHT IN REACH. WILL CONT TO MONITOR
--- NOTE | 2019-07-15 07:37 | NUR ---
PT RESTING IN BED, NO SIGSN OF DISTRESS NOTED. CALL BUTTON WITHIN REACH. SAFETY PRECAUTIONS IN PLACE. ENDORSED CARE TO DAY SHIFT RN, ALL QUESTIONS ADDRESSED.
--- NOTE | 2019-07-15 09:10 | NUR ---
PER CT IV TO RAC UNABLE TO USE WITH CONTRAST. ATTMEPTED NEW IV, UNSUCCESSFUL. PT REFUSING TO GET CT DOWN AND STATES "I DONT WANT TO HAVE THE TEST TODAY. IM IN TOO MUCH PAIN, I WANT MY MOPRHINE. I WANT TO EAT AND THEN TO SLEEP". PT REFUSING NEW IV PLACEMENT AT THIS TIME. CHARGE NURSE AWARE, WILL NOTIFY REHABILITATION CENTER MANAGER
--- NOTE | 2019-07-15 09:30 | NUR ---
AM MEDICATIONS GIVEN AT THIS TIME. PT TOLERATED WELL. RESPIRATIONS EQUAL AND UNLABORED. ON RA, DENIES SOB. PT GIVEN PAIN MEDS AT THIS TIME. VSS. BED IN LOW POSITION. CALL LIGHT IN REACH. WILLCONT TO MONITOR.
[2019-07-15 09:41] VITALS: BP 123/72
--- NOTE | 2019-07-15 10:56 | NUR ---
CONTROL ROOM TENDER MADE AWARE THAT PT REFUSING CT WITH IV CONTRAST AND NEW IV AT THIS TIME. WILL NOTIFY CHARGE NURSE TO F/U WITH RADIOLOGY IN THE MORNING. NO NEW ORDERS AT THIS TIME
--- NOTE | 2019-07-15 11:15 | NUR ---
WAITING TO HANG POTASSIUM AND FLAGYL IV AT THIS TIME. VANCO STILL INFUSING AT THIS TIME. PT CONTINUES TO BEND ARM AND IV UNABLE ABLE TO INFUSE CONTINOUSLY. PT EDUCATED ON IMPORTANCE OF KEEPING ARM STRAIGHT OR INSERTING A NEW IV. PT REFUSES NEW IV BUT STATES "I WILL KEEP MY ARM STRIAHGT". WILL CONT TO MONITOR
--- NOTE | 2019-07-15 14:11 | NUR ---
PT C/O OF HEAD PAIN, REQUESTING MORPHINE IVP AT THIS TIME. ANTIBIOTIC COMPLETE. POTASSIUM INTITATED AT THIS TIME. PT INSTRUCTED TO NOT BEND ARM SO POTASSIUM COULD INFUSE, PT VERBALIZED UNDERSTANDING. BED IN LOW POSITION. CALL LIGHT IN REACH. FAMILY PRESENT AT BEDSIDE.W ILL CONT TO MONITOR
[2019-07-15 16:52] VITALS: BP 139/85
--- NOTE | 2019-07-15 18:27 | NUR ---
IV TO RAC LEAKING, REMOVED. NO ERYTHEMA/DISCOMFORT NOTED. NEW IV TO BE INSERTED AT THIS TIME. PT REQUESTING IV MORPHINE, NOT DUE AT THIS TIME, WILL MEDICATE ACCORDING TO EMAR. RESPIRATIONS EQUAL AND UNLABORED. PT DENIES SOB. NO ACUTE SKIN CHANGES NOTED AT THIS TIME. BED IN LOW POSITION. CALL LIGHT IN REACH. WILL ENDORSE TO author agent rn
--- NOTE | 2019-07-15 19:30 | NUR ---
RECIEVED PATIENT RESTING IN BED WITH NO ACUTE DISTRESS, ASSESSMENT PERFORMED AT THIS TIME. PT IS A/O X 4 AT THIS TIME, PT REPORTS CHAU RADIATING TO NECK AND BACK (MEDICATED SEE DEC), PT DENIES SOB OR CHEST PAIN AT THIS TIME ALL PATIENT NEEDS ATTENDED TO WILL CONTINUE TO MONITOR
--- NOTE | 2019-07-15 19:35 | NUR ---
PT UP AND AMBULATED TO RESTROOM AND HAD ONE VOID, PT GAIT STAEDY AND BALANCED.
[2019-07-15 21:00] VITALS: BP 132/78
--- NOTE | 2019-07-15 21:00 | NUR ---
PT REPORTS TO BE IN PAIN, 9/10, SHOOTING PAIN FROM HEAD TO BACK
--- NOTE | 2019-07-15 22:12 | NUR ---
PT REPORTS PAIN IS STILL AT A SEVERE LEVEL 9/10, ADMINISTERED MORPHINE PER PHYSICIANS ORDER.
--- NOTE | 2019-07-15 22:43 | NUR ---
PT STILL IN SEVERE PAIN, ENCOURAGED RELAXATION TECHNIQUES AND MADE PT COMFORTABLE IN BED, INFORMED DR GRACIA OF THE ADMINISTRATION OF MEDICATIONS AND PATIENTS PAIN LEVEL, NO NEW ORDERS
--- NOTE | 2019-07-16 00:10 | NUR ---
PLACED K PAD ON AREA OF PATIENTS PAIN AND PT VOCALIZED THAT IT HELPED WITH PAIN
--- NOTE | 2019-07-16 01:00 | NUR ---
PT COMPLAINING OF PAIN TO THE BACK, NECK AND BACK OF HEAD 07/11, ADMINISTERED PERCOCETPER PRN PHYSICIANS ORDER.
--- NOTE | 2019-07-16 02:14 | NUR ---
PT REPORTS TO STILL BE IN PAIN ADMINISTERED MORPHINE PRN PER PHYSICIANS ORDER, BLOOD PRESSURE 137/87. WILL CONTINUE TO MONITOR
--- NOTE | 2019-07-16 03:30 | NUR ---
PT RESTING IN BED WITH EYES CLOSED AND NO ACUTE DISTRESS NOTED AT THIS TIME, PT EASILY AROUSABLE TO VERBAL STIMULI, SAFETY PRECAUTIONS IN PLACE, WILL CONTINUE TO MONITOR
[2019-07-16 05:00] VITALS: BP 135/85
--- NOTE | 2019-07-16 05:16 | NUR ---
PT HAD EPISODE OF PAIN DURING SHIFT THAT WAS TREATED WITH PRN ADMINISTRATION OF MORPHINE AND PERCOCET THAT, AT FIRST, WAS INEFFECTIVE, IMPLEMENTED K PAD TO LOCATIONS OF PATIENTS PAIN TO SOME RELIEF, PT PAIN IS NOW AT AN ACCEPTABLE LEVEL, PT AMBULATED TO RESTROOM 4 TIMES AITH A STEADY AND BALANCED GAIT, PT REMAINED NPO SINCE MIDNIGHT, ALL PATIENT NEEDS ATTENDED TO, WILL CONTINUE TO MONITOR AND ENDORSE CARE.
--- NOTE | 2019-07-16 07:23 | NUR ---
RECEIVED REPORT FROM ESD[facility] BIGGS. PATIENT RESTING IN BED C/O SEVERE HEADACHE AND REQUESTING MORPHINE. IV TO RFA IS PATENT AND INFUSING NS @ 100 ML/HR. NO REDNESS OR PAIN. PT ON ROOM AIR. NO C/O SOB AND NO DISTRESS NOTED.RT EYE APPEARES RED AND WATERY. KPAD APPLIED TO UPPER BACK. ALL QUESTIONS AND CONCERNS ADDRESSED.
--- NOTE | 2019-07-16 08:33 | NUR ---
PATIENT TAKEN DOWN FOR CT VIA WHEELCHAIR.
[2019-07-16 09:00] VITALS: BP 137/86
[2019-07-16 10:02] LABS: CALCIUM 8.6 mg/dL (8.5-10.1); CARBON DIOXIDE 32.9 mmol/L (21-32); CHLORIDE SERUM 100 mmol/L (98-107); CREATININE SERUM 0.5 mg/dL (0.7-1.3); GFR1 > 60 mL/min; GLUCOSE SERUM 63 mg/dL (74-106); SODIUM SERUM 141 mmol/L (136-145)
[2019-07-16 10:11] LABS: POTASSIUM SERUM 2.7 mmol/L (3.5-5.1)
[2019-07-16 10:18] LABS: BASOPHIL % 0.6 % (0-2)
[2019-07-16 10:24] LABS: PLATELET COUNT 460 x10^3mcL (130-400); RED CELL DISTRIBUTION WIDTH 15.4 % (11.5-14.5)
--- NOTE | 2019-07-16 11:55 | NUR ---
Follow-up Nutrition Assessment- Dx: DKA, sepsis Labs: (07/16/19) Na 141, K 2.7, Glu 63, BUN 9.0, Cr 0.5, A1c 10.5 H, H/H 11.6/35. Meds: ambien, Colace, D50%, flagyl, humulin, KCl, lantus, morphine sulfate, neutraphos, norco, Prilosec, rocephin, sodium chl, vancomycin, Zofran Diet: [facility] PO Intakes: (07/14) L: 60%, D: 80%, (07/15) B: 0%, L: 100%, D: 100%; overall average of 85% x 4 meals. This provides ~1454 kcal and ~87 gm protein to meet 80% estimated kcal and 100% estimated protein needs; adequate. Weights: (07/13) 62.6 kg/138 pounds Skin: small abrasion rt nose Edema: none Last BM: prior to admission Pt declined interview with RDN at this time, unable to offer DM education. Pt appears to be eating well, consuming an average of 85%, continues on Glucerna BID as well. Estimated Nutritional Needs unchanged from prior assessment: Energy: 4375-0205 kcal/d (30-35 kcal/kg) Protein: 62.6-75 gm/d (1-1.2 gm/kg) - preserve LBM Fluid: 9006-2113 mL/d (1 mL/kcal) or per doctor Nutrition Diagnosis 1. Malnutrition related to poor PO as evidenced by documented PO 10% and emaciated appearance. (Resolved; Pt meeting estimated nutrient needs with current PO intake pattern.) Intervention/RDN Recommendation(s): 1. Continue CCHO diet as tolerated. 2. Continue Glucerna shakes BID as tolerated. Glucerna BID will provide 440 kcal and 20 gm protein. Monitor/Evaluate Goal: Intake via PO intakes to meet at least 75% of estimated needs with acceptable tolerance within 2-3 days. Monitor: PO intakes and/or nutrition support tolerance, Labs, GI function, Skin integrity, Weights. F/U in 3-5 days as moderate risk (07/19-)
--- NOTE | 2019-07-16 11:56 | NUR ---
Intervention/RDN Recommendation(s): 1. Continue CCHO diet as tolerated. 2. Continue Glucerna shakes BID as tolerated. Glucerna BID will provide 440 kcal and 20 gm protein.
[2019-07-16 17:25] VITALS: BP 134/73
--- NOTE | 2019-07-16 17:30 | NUR ---
HEPARIN DRIP STARTED AT THIS TIME. VERIFIED BY MYSELF AND CAR INSPECTION AND REPAIR MANAGERKALYAN INFANTE. 3900 UNIT BOLUS GIVEN AND INFUSION STARTED AT 800 UNITS PER/HOUR. PTT ORDERED FOR 23:30 PER HEPARIN PROTOCOL.
--- NOTE | 2019-07-16 19:25 | NUR ---
REPORT GIVEN TO SYDNI BIGGS. PATIENT RESTING IN BED C/O SEVERE HEADACHE. PAIN MEDICATION ADMINISTERED. ALL QUESTIONS AND CONCERNS ADDRESSED. ALL CARES ENDORSED.
--- NOTE | 2019-07-16 19:30 | NUR ---
PT RECIEVED FROM DAY NURSE. PT RESTING IN BED AT THIS TIME. PT STATES PAIN IN THE BACK OF HEAD. MEDICATED WITH PERCOCET. PT M/S, DENIES CP, N/V, DIZZINESS, AND PALPATATIONS AT THIS TIME. PALPABLE PULSES, NO EDEMA NOTED. BREATHING E/U ON RA. DENIES SOB. ABD SOFT AND ROUND, DENIES PAIN TO PALPATION. PALAPABLE PULSES, NO EDEMA NOTED. PT AMBULATORY WITH ASSIST. R EYE ABRASION NOTED. IV TO LFA CDI AND INFUSING. RFA IV INTACT AND INFUSING. BED AT LOWEST POSITION. CALL LIGHT WITHIN REACH. WILL CONTINUE TO MONITOR.
--- NOTE | 2019-07-16 20:10 | NUR ---
PT COMPLAINING OF 7/10 PAIN IN BACK OF HIS HEAD. MEDICATED WTIH PRN MORPHINE. WILL CONTINUE TO MONITOR.
[2019-07-16 20:24] VITALS: BP 134/80
--- NOTE | 2019-07-16 23:33 | NUR ---
PT COMPLAINING OF 8/10 PAIN IN THE BACK OF HEAD. MEDICATED WITH PRN MORPHINE AND PERCOCET. WILL CONTINUE TO MONITOR.
--- NOTE | 2019-07-17 | NUR ---
PT RESTING IN BED AT THIS TIME. S/S OF PAIN NOTED AT THIS TIME, WILL MEDICATE. BREATHING E/U ON RA. BED AT LOWEST POSITION. CALL LIGHT WITHIN REACH. WILL CONTINUE TO MONITOR.
--- NOTE | 2019-07-17 00:40 | NUR ---
PT PTT 27.3. REBOLUSED 3900 UNITS PER PROTOCOL. INCREASED RATE ELMO 800 TO 1100. ORDERED PTT FOR 0430.
--- NOTE | 2019-07-17 03:53 | NUR ---
PT COMPLAINING OF 8/10 FACIAL PAIN. MEDICATED WITH PRN PERCOCET.
--- NOTE | 2019-07-17 04:30 | NUR ---
PT REFUSING PTT DRAW AT THIS TIME. PT STATING "COME BACK LATER I AM IN PAIN". PT EDUCATED ON NEED FOR PTT. PT CONTINUING TO REFUSE. CHARGE NURSE NOTIFIED.
[2019-07-17 05:30] VITALS: BP 118/77
--- NOTE | 2019-07-17 06:21 | NUR ---
PT RESTING IN BED AT THIS TIME. DENIES PAIN OR DISCOMFORT. BREATHING E/U ON RA. ALL NEEDS AND CONCERNS ADDRESSED THIS SHIFT. BED AT LOWEST POSITION. CALL LIGHT WITHIN REACH. WILL ENDORSE TO DAY NURSE.
[2019-07-17 06:59] LABS: CALCIUM 8.7 mg/dL (8.5-10.1); CARBON DIOXIDE 29.6 mmol/L (21-32); CHLORIDE SERUM 98 mmol/L (98-107); CREATININE SERUM 0.6 mg/dL (0.7-1.3); GFR1 > 60 mL/min; GLUCOSE SERUM 183 mg/dL (74-106); PHOSPHOROUS 3.5 mg/dL (2.5-4.9); POTASSIUM SERUM 3.6 mmol/L (3.5-5.1); SODIUM SERUM 137 mmol/L (136-145)
[2019-07-17 07:29] LABS: PLATELET COUNT 531 x10^3mcL (130-400)
--- NOTE | 2019-07-17 07:35 | NUR ---
RECEIVED AWAKE, ALERT AND ORIENTED. SITTING AT THE EDGE OF THE BED. NO RESP. DISTRESS NOTED. NO C/O PAIN AT THIS TIME. IVF INFUSING WELL AND SITE CLEAR. HEPARIN DRIP INFUSING AT 1100U/HR, NO ACTIVE BLEEDING NOTED. CALL LIGHT WITHIN REACH. WILL CONTINUE WITH PLAN OF CARE.
[2019-07-17 08:01] LABS: BAND NEUTROPHIL 3 % (0-10); MONOCYTE 10 % (0-7); SEGMENTED NEUTROPHILS 55 % (37-75)
[2019-07-17 08:02] LABS: rbc morphology (normal/abnorm) ABNORMAL (NORMAL)
[2019-07-17 08:03] LABS: PLATELET MORPHOLOGY PLATELETS INCREASED; acanthocyte (spur cell) 1+
[2019-07-17 08:56] VITALS: BP 130/72
--- NOTE | 2019-07-17 09:27 | NUR ---
MEDICATED FOR HEADACHE WITH FAIR RELIEF. RESTING AT THIS TIME. NO RESP. DISTRESS NOTED.
--- NOTE | 2019-07-17 11:06 | NUR ---
PTT 27.5, HEPARIN DRIP ADJUSTED PER ORDER. BOLUS 3900U IV AND INCREASED INFUSION TO 1400U/HR. PT RESTING IN NO DISTRESS. NO ACTIVE BLEEDING NOTED. WILL CONTINUE TO MONITOR.
--- NOTE | 2019-07-17 12:03 | NUR ---
C/O HEADACHE 08/10, MEDICATED WITH MORPHINE IVP PER ORDER.
[2019-07-17] MEDS ORDERED: HEP5I IV (14:10)
[2019-07-17] MEDS ORDERED: HEP100I IV (14:10)
[2019-07-17 14:32] VITALS: BP 130/72
--- NOTE | 2019-07-17 15:28 | NUR ---
PT TRANSFERED TO [facility] IN NO DISTRESS, AWAKE AND ALERT. MEDICATED FOR PAIN PRIOR TO DC WITH PERCOCET PO. LEFT ON HEPARIN DRIP AT 1400UNITS /HR. NO ACTIVE BLEEDING NOTED. VS STABLE. HL X2 PATENT. DC INSTRUCTIONS REVIEWED WITH PT AND COPY SENT WITH [facility]. REPORT GIVEN TO . PERSONAL BELONGINGS TAKEN HOME BY MOTHER.
== END 2019-07-17 15:20 | disposition short-term general hospital (02) | DRG 720 ==
LOC: ED 14:43 → MU 18:33 → IC 18:33 → DU 07-12 18:40 → MU 07-13 12:37
PROVIDERS: Emergency Medicine; ADMIT Internal Medicine
DX: A41.02 Sepsis due to Methicillin resistant Staphylococcus aureus (principal); G08 Intracranial and intraspinal phlebitis and thrombophlebitis; E43 Unspecified severe protein-calorie malnutrition; E10.10 Type 1 diabetes mellitus with ketoacidosis without coma; L89.151 Pressure ulcer of sacral region, stage 1; J90 Pleural effusion, not elsewhere classified; E83.51 Hypocalcemia; K92.2 Gastrointestinal hemorrhage, unspecified; E10.42 Type 1 diabetes mellitus with diabetic polyneuropathy; E87.1 Hypo-osmolality and hyponatremia; J34.0 Abscess, furuncle and carbuncle of nose; F15.10 Other stimulant abuse, uncomplicated; E80.6 Other disorders of bilirubin metabolism; I10 Essential (primary) hypertension; F17.210 Nicotine dependence, cigarettes, uncomplicated; Z79.4 Long term (current) use of insulin; Z68.21 Body mass index [BMI] 21.0-21.9, adult; Z91.14 Patient's other noncompliance with medication regimen; Z88.8 Allergy status to other drugs, medicaments and biological substances; Z91.040 Latex allergy status; F32.9 Major depressive disorder, single episode, unspecified; Z82.49 Family history of ischemic heart disease and other diseases of the circulatory system; Z83.3 Family history of diabetes mellitus; Z91.19 Patient's noncompliance with other medical treatment and regimen; E87.6 Hypokalemia; F41.1 Generalized anxiety disorder
CPT/HCPCS: 82962; G0378; J0692; J0696; J1644; J1815; J2270; J2405; J3370; J3480; J3490; J7030; Q0092; Q9967